=== PATIENT | male | born 1945 | race Caucasian/White ===

== ENCOUNTER 2019-07-18 19:13 | Emergency (ER) | payer MEDICARE, SELFPAY ==
--- NOTE | ~2019-07-18 | XR_ITS ---
EXAMINATION: XR chest 2V DATE: 07/18/2019 19:42 INDICATION: Shortness of breath and cough TECHNIQUE: PA and lateral views of the chest are obtained. COMPARISON: None available FINDINGS: The lungs are free of acute opacities. There is no pleural effusion or pneumothorax. The ca rdiomediastinal silhouette is normal. There is mild thoracic spondylosis. IMPRESSION: 1. No acute cardiopulmonary abnormality. Reviewed, dictated and finalized at location A. DREN'S MINISTRY DIRECTOR
[2019-07-18 19:17] VITALS: BP 186/95; PULSE 71; RESP 20; O2SAT 97
[2019-07-18 19:26] VITALS: BP 175/84; PULSE 68; RESP 20; TEMP 37.2; O2SAT 97
[2019-07-18 19:29] VITALS: O2SAT 97
--- NOTE | 2019-07-18 20:01 | ECG_ITS ---
Measurements Intervals [place] Rate: 66 P: 65 VA: 187 QRS: 16 QRSD: 94 T: 40 QT: 394 QTc: 413 Interpretive Statements SINUS RHYTHM CANNOT RULE OUT SEPTAL INFARCT, AGE INDETERMINATE ABNORMAL ECG Electronically Signed On 07-19-2019 7:05:03 MAIL AGENT by George Molina D.O.
[2019-07-18 20:02] LABS: Basophils Absolute Auto 0.1 K/mm3 (0.0-0.1); Basophils Percent Auto 0.9 % (0.2-1.2); Eosinophils Absolute Auto 0.5 K/mm3 (0-0.3); Eosinophils Percent Auto 9.8 % (0-4.4); Hematocrit 45.5 % (42.0-52.0); Hemoglobin 15.3 g/dL (14.0-18.0); Immature Granulocyte Absolute 0.02 K/mm3 (0.00-0.031); Immature Granulocyte Percent A 0.4 % (0-0.5); Lymphocytes Absolute Auto 1.15 K/mm3 (0.9-3.2); Lymphocytes Percent Auto 21.6 % (18.3-44.2); Mean Corpuscular HGB Conc 33.6 g/dl (32-36); Mean Corpuscular Hemoglobin 32.9 pg (26-34); Mean Corpuscular Volume 97.8 fl (80-100); Mean Platelet Volume 10.2 fl (7.4-10.4); Monocytes Absolute Auto 0.7 K/mm3 (0.1-0.6); Monocytes Percent Auto 13.7 % (2.6-8.5); Neutrophils Absolute Auto 2.9 K/mm3 (1.3-6.7); Neutrophils Percent Auto 53.6 % (45.5-73.1); Platelet Count Result 170 k/mm3 (150-375); Red Blood Count 4.65 M/mm3 (4.6-6.20); Red Cell Distribution Width 12.7 % (11.5-14.5); White Blood Count 5.3 K/mm3 (4.5-10.0)
--- NOTE | 2019-07-18 20:07 | ED.SOB ---
HPI - SOB/Dyspnea General Chief Complaint: Shortness of Breath/Dyspnea Stated Complaint: sob Time Seen by Provider: 07/18/19 20:07 Source: patient Mode of arrival: ambulatory Limitations: no limitations History of Present Illness HPI Narrative: A 74 y/o male presents to the ED with c/o intermittent SOB that is worse on exertion. Pt states that he woke up at 2:00 AM and felt SOB when he was walking to the bathroom. Pt notes that everyone has been coming to work sick and the yeimi behind me was coughing on Thursday. Pt went into work today and did not feel SOB while he was there. Pt thinks that his symptoms may be panic attack related. Pt states that he feels better now. Pt denies CP and notes that he had an echocardiogram done 4-5 months ago. Pt quit smoking about 5 years ago but used to smoke 2-3 PPD. Pt was prescribed Spiriva by his PCP, Dr. Mckinley, a few years ago but never took it. Pt last saw Dr. Mckinley a couple weeks ago. Pt lives alone and notes that his 4 years ago due to COPD. He denies BLE pain or edema, a FERRER, and a fever. Onset (ago): hour(s) Timing: intermittent Exacerbating factors: exertion Related Data Home Medications Medication Instructions Recorded Confirmed escitalopram oxalate 10 mg tablet 10 mg PO DAILY 05/23/19 05/23/19 levothyroxine 100 mcg tablet 100 mcg PO DAILY 05/23/19 05/23/19 tiotropium bromide 2.5 1 puff INHALATION DAILY PRN gm 05/23/19 05/23/19 mcg/actuation mist for inhalation Allergies Allergy/AdvReac Type Severity Reaction Status Date / Time No Known Allergies Allergy Verified 07/05/19 11:41 Review of Systems Review of Systems: All systems reviewed & are unremarkable except as noted in HPI and below Constitutional: Constitutional: Denies fever(s) Cardiovascular: Cardiovascular: Denies chest pain Respiratory: Respiratory: Reports dyspnea (intermittent ) Musculoskeletal: Comments: Denies: BLE pain or edema Neurologic: Denies headache(s) [facility], [facility] Past Medical History Medical History (Updated 07/19/19 @ 00:00 by Background Daemon) Alcoholism Anxiety Cataracts, bilateral Dupuytren's contracture right palm Elevated liver enzymes Elevated PSA Essential tremor History of rectal polyps Hyperglycemia Hypertension Hypothyroid Wears glasses Social History Social History Smoking status: Former smoker Smoking end date: 06/08/11 Alcohol intake: current Substance use: never Comments PCP: Dr. Mckinley Exam Narrative: Exam Narrative: GENERAL: Well-appearing, well-nourished, and in no acute distress. HEAD: Normocephalic, atraumatic EYES: PERRLA and EOMI, conjunctiva clear without discharge THROAT:Mucous membranes moist, Oropharynx normal without erythema, exudate, peritonsillar swelling or fluctuance NECK: Supple, without lymphadenopathy or mass HEART: Regular rate and rhythm. No murmur heard. Normal peripheral pulses. ABDOMEN: Soft, nontender, nondistended, normal active bowel sounds. No masses. No rebound or guarding, No organomegaly. EXTREMITIES: No edema, normal strength with full range of motion. SKIN: Warm, dry, normal color without rash NEURO: Alert and oriented x3. CN 2-12 grossly intact. No focal deficits. PSYCH: Normal mood and affect. Resp: Effort & Inspection: normal respiratory effort, able to speak in complete sentences, prolonged expiratory phase and symmetric chest movement Auscultation: wheezes Course Reevaluation(s) Reevaluation #1: Patient states he feels better after neb treatment. His sob may be combination of COPD and anxiety. He states he understands and he will follow up with PCP. He states he has nebulizer at home and he request inhaler and neb solution. Date: 07/18/19 Time: 22:06 Vital Signs Vital signs: Vital Signs Pulse Rate 71 07/18/19 19:17 Respiratory Rate 20 07/18/19 19:17 Blood Pressure 186/95 H 07/18/19 19:17 Pulse Oximetry 97 07/18
[2019-07-18 20:35] LABS: Blood Urea Nitrogen 10 mg/dL (9-20); Calcium 9.4 mg/dL (8.4-10.2); Carbon Dioxide 27 mmol/L (22-30); Chloride 100 mmol/L (98-107); Estimated CRCL calculation 82 ml/min; Estimated Glomerular Filt Rate > 60; Glucose 119 mg/dL (75-110); Sodium 137 mmol/L (137-145)
[2019-07-18 20:58] VITALS: PULSE 61; RESP 12
[2019-07-18] MEDS: IPRATROPIUM BR 0.02% INH SOLN 0.5 MG/2.5 ML VIAL INHALATION (21:00)
[2019-07-18] MEDS: ALBUTEROL SULFATE NEB 2.5 MG/0.5 ML INH 5 MG INHALATION (21:00)
[2019-07-18 21:11] VITALS: PULSE 61; RESP 12
[2019-07-18 21:55] LABS: Prothrombin Time 12.6 Seconds (11.1-14.7)
[2019-07-18 21:56] LABS: Partial Thromboplastin Time 27.3 SECONDS (22.3-36.8)
[2019-07-18 21:58] LABS: D Dimer 0.36 ug/mL (<0.48)
[2019-07-18 22:20] VITALS: BP 169/79; PULSE 71; RESP 20; O2SAT 97
== END 2019-07-18 22:22 | disposition home or self-care (01) ==
PROVIDERS: Emergency Medicine; Emergency Provider General Practice; PCP Internal Medicine
DX: J44.1 Chronic obstructive pulmonary disease with (acute) exacerbation (principal); F41.9 Anxiety disorder, unspecified; I10 Essential (primary) hypertension; E03.9 Hypothyroidism, unspecified; Z87.891 Personal history of nicotine dependence
CPT/HCPCS: 36415; 71046; 80048; 85025; 85380; 85610; 85730; 87804; 93005; 94640; 99283

== ENCOUNTER 2019-07-19 06:50 | Emergency (ER) | payer MEDICARE, SELFPAY ==
[2019-07-19] VITALS (9 sets, daily range): BP systolic 158–188; BP diastolic 80–99; PULSE 65–80; RESP 15–31; TEMP 37.4; O2SAT 91–100
--- NOTE | ~2019-07-19 | CT_ITS ---
EXAMINATION: CTA chest PE protocol DATE: 07/19/2019 07:47 INDICATION: Shortness of breath and cough TECHNIQUE: Computed tomography (CT) pulmonary angiogram of the chest was performed with 100 mL Omnipa que-350 intravenous contrast. Additional 3D reconstructions utilizing coronal maximum intensity proje ction (MIP) were performed. Automated exposure control and iterative reconstruction technique were em ployed. The dose-length product was 614.09 mGy-cm. COMPARISON: None FINDINGS: Excellent contrast opacification of the pulmonary arteries. There is mild streak artifact from dense contrast in the superior vena cava and right atrium. Mild respiratory motion artifact at the lung bas es which is not significantly limit evaluation. No pulmonary embolism. There is diffuse bronchial wal l thickening throughout the lungs consistent with bronchitis. There is mucous plugging of several of the subsegmental bronchi in the bilateral lower lobes. No pneumonia, pulmonary edema or pleural effus ion. Heart size is normal. Thoracic aorta is normal in caliber with no dissection. Calcified mediasti nal lymph nodes as well as a multiple splenic and hepatic calcifications consistent with old granulom atous disease. No pathologically enlarged thoracic lymphadenopathy. Diffuse hepatic steatosis. Small sliding-type hiatal hernia. Bones are unremarkable. IMPRESSION: 1. No pulmonary embolism. 2. Diffuse bronchial wall thickening consistent with bronchitis with mucous plugging of multiple basi lar subsegmental bronchi. 2. Small sliding-type hiatal hernia. 4. Diffuse hepatic steatosis. Reviewed, dictated and finalized at location A. IT BALANCE SPECIALIST IMPRESSION: 1. No pulmonary embolism. 2. Diffuse bronchial wall thickening consistent with bronchitis with mucous plu gging of multiple basilar subsegmental bronchi. 2. Small sliding-type hiatal hernia. 4. Diffuse hepatic steatosis.
--- NOTE | 2019-07-19 06:51 | ECG_ITS ---
Measurements Intervals [place] Rate: 72 P: 51 UT: 170 QRS: 22 QRSD: 102 T: 41 QT: 391 QTc: 429 Interpretive Statements SINUS RHYTHM CANNOT RULE OUT SEPTAL INFARCT, AGE INDETERMINATE BASELINE ARTIFACT- I, III, AVR, AVL, AVF ABNORMAL ECG Electronically Signed On 07-19-2019 8:59:40 THERMOSTATIC CONTROLS SUPERVISOR by George Molina D.O.
--- NOTE | 2019-07-19 06:56 | ED.SOB ---
HPI - SOB/Dyspnea General Chief Complaint: Shortness of Breath/Dyspnea Stated Complaint: SOB Time Seen by Provider: 07/19/19 06:51 Source: RN notes reviewed History of Present Illness HPI Narrative: Patient presents emergency department from home for shortness of breath. Patient states that he has been having some intermittent shortness of breath for the past several days. Patient states that he was seen in the emergency department last night with improvement of symptoms in the he awoke at approximately 2 AM again wheezing and feeling short of breath with progressively worsening symptoms. Patient denies any fevers or chills, chest pain nausea or vomiting. Patient did use albuterol inhaler at home with minimal relief. Related Data Home Medications Medication Instructions Recorded Confirmed escitalopram oxalate 10 mg tablet 10 mg PO DAILY 05/23/19 05/23/19 levothyroxine 100 mcg tablet 100 mcg PO DAILY 05/23/19 05/23/19 tiotropium bromide 2.5 1 puff INHALATION DAILY PRN gm 05/23/19 05/23/19 mcg/actuation mist for inhalation Allergies Allergy/AdvReac Type Severity Reaction Status Date / Time No Known Allergies Allergy Verified 07/05/19 11:41 Review of Systems Review of Systems: Narrative: Gen.: Denies fevers or chills Eyes: Denies eye pain or visual change ENT: Denies congestion Respiratory: See HPI CV: Denies chest pain or palpitations GI: Denies abdominal pain nausea, emesis or diarrhea Musculoskeletal: Denies back pain or muscle pain Neuro: Denies numbness, tingling, weakness or focal weakness Skin: Denies rash Except as documented, all other systems reviewed and negative [facility] Past Medical History Medical History Alcoholism Anxiety Cataracts, bilateral Dupuytren's contracture right palm Elevated liver enzymes Elevated PSA Essential tremor History of rectal polyps Hyperglycemia Hypertension Hypothyroid Wears glasses Social History Social History Smoking status: Former smoker Smoking end date: 06/08/11 Alcohol intake: current Substance use: never Gender identity (if verbalized by the patient): Male Exam Narrative: Exam Narrative: APPEARANCE: Moderate respiratory distress nontoxic, resting in bed EYES: EOMI HEENT: Normocephalic, atraumatic, OMM RESPIRATORY: Moderate respiratory distress, speaking in short phrases, wheezing throughout the bilateral lung garland, no rhonchi rales CARDIOVASCULAR: Regular rate and rhythm without murmurs rubs or gallops. ABDOMINAL: Soft, nontender, nondistended, no rebound or guarding MUSCULOSKELETAl: Moves all extremities. No clubbing, cyanosis or edema. NEURO: Awake and alert. Following commands, speech normal, no focal deficits SKIN:: Warm, dry. No rashes lesions or abrasions PSYCHIATRIC: Normal affect/mood, Course Course Emergency Course: Patient states he is feeling better following breathing treatments. Repeat lung exam clear to all station bilaterally Patient able to get up and ambulate in ED with no shortness of breath Reviewed old records in chart. Patient was prescribed albuterol inhaler yesterday Discussed with patient results of workup and diagnosis. Discussed need for follow-up with primary care, proper use of medication, and reasons to return to the emergency department. Patient understands and agrees to current treatment plan Vital Signs Vital signs: Vital Signs Temperature 99.4 F 07/19/19 06:57 Pulse Rate 80 07/19/19 06:57 Respiratory Rate 22 H 07/19/19 06:57 Blood Pressure 185/99 H 07/19/19 06:57 Pulse Oximetry 98 07/19/19 06:57 Temperature 99.4 F 07/19/19 07:07 Pulse Rate 68 07/19/19 09:13 Respiratory Rate 16 07/19/19 09:13 Blood Pressure 171/80 H 07/19/19 09:13 Pulse Oximetry 91 07/19/19 09:13 MDM - SOB/Dyspnea Lab Data Result diagrams: 07/19/19 07:07 07/19/19 07:06
[2019-07-19 07:15] LABS: Basophils Absolute Auto 0.1 K/mm3 (0.0-0.1); Basophils Percent Auto 0.9 % (0.2-1.2); Eosinophils Absolute Auto 0.4 K/mm3 (0-0.3); Eosinophils Percent Auto 6.2 % (0-4.4); Hematocrit 45.7 % (42.0-52.0); Hemoglobin 15.4 g/dL (14.0-18.0); Immature Granulocyte Absolute 0.02 K/mm3 (0.00-0.031); Immature Granulocyte Percent A 0.3 % (0-0.5); Lymphocytes Absolute Auto 0.75 K/mm3 (0.9-3.2); Mean Corpuscular HGB Conc 33.7 g/dl (32-36); Mean Corpuscular Volume 97.9 fl (80-100); Mean Platelet Volume 9.8 fl (7.4-10.4); Monocytes Percent Auto 17.3 % (2.6-8.5); Neutrophils Absolute Auto 3.6 K/mm3 (1.3-6.7); Neutrophils Percent Auto 62.3 % (45.5-73.1); Platelet Count Result 158 k/mm3 (150-375); Red Blood Count 4.67 M/mm3 (4.6-6.20); Red Cell Distribution Width 12.7 % (11.5-14.5); White Blood Count 5.8 K/mm3 (4.5-10.0)
[2019-07-19 07:17] LABS: Alveolar/Arterial O2 Gradient 40.1 mmHg; Base Excess ABG 0.6 mEq/l (+/-2.0); Fractional Inspired Oxygen 21 %; HCO3 ABG 24.4 mEq/l (22.0-26.0); Oxygen Content ABG 20.2 %vol (16.0-22.0); Oxygen Saturation ABG 93.8 % (95.0-100.0); Oxyhemoglobin 92.3 % THb (90.0-100.0); PCO2 ABG 36.6 mmHg (35.0-45.0); PO2 ABG 65.8 mmHg (80.0-100.0); PO2 FiO2 Ratio Arterial Blood 3.13 %; Site Drawn RIGHT BRACHIAL; Total Hemoglobin 15.6 g/dL (12.0-18.0); pH ABG 7.441 (7.350-7.450)
[2019-07-19 07:18] LABS: Device ROOM AIR
[2019-07-19] MEDS: IPRATROPIUM BR 0.02% INH SOLN 0.5 MG/2.5 ML VIAL INHALATION ×2 (07:20→08:38)
[2019-07-19] MEDS: ALBUTEROL SULFATE NEB 2.5 MG/0.5 ML INH 5 MG INHALATION ×2 (07:20→08:38)
--- NOTE | 2019-07-19 07:25 | PC.NURSE ---
Assumed pt care at this time.
[2019-07-19 07:27] LABS: Lactic Acid Reflex 0.8 mmol/L (0.7-2.1)
[2019-07-19 07:27] LABS: Blood Urea Nitrogen 10 mg/dL (9-20); Calcium 9.7 mg/dL (8.4-10.2); Carbon Dioxide 22 mmol/L (22-30); Chloride 103 mmol/L (98-107); Estimated CRCL calculation 94 ml/min; Estimated Glomerular Filt Rate > 60; Glucose 128 mg/dL (75-110); Potassium 4.1 mmol/L (3.4-5.0); Sodium 138 mmol/L (137-145)
[2019-07-19 07:31] LABS: Prothrombin Time 12.7 Seconds (11.1-14.7)
[2019-07-19 07:32] LABS: Partial Thromboplastin Time 26.9 SECONDS (22.3-36.8)
[2019-07-19] MEDS: methylPREDNISolone SOD SUCC 125 MG VIAL IV PUSH (07:33)
[2019-07-19 07:39] LABS: NT Pro B Type Natriuretic Pept 441 PG/ML (5-100); Troponin I < 0.012 ng/mL (0.000-0.034)
== END 2019-07-19 09:36 | disposition home or self-care (01) ==
PROVIDERS: Emergency Provider Emergency Medicine; PCP Internal Medicine
DX: F41.9 Anxiety disorder, unspecified (principal); E03.9 Hypothyroidism, unspecified; Z87.891 Personal history of nicotine dependence; J44.9 Chronic obstructive pulmonary disease, unspecified; R94.31 Abnormal electrocardiogram [ECG] [EKG]
CPT/HCPCS: 36415; 36600; 71275; 80048; 82805; 83605; 83880; 84484; 85025; 85610; 85730; 87040; 93005; 94640; 96374; 99284; J2930; Q9967

== ENCOUNTER 2019-07-19 23:24 | Observation (INO) | payer MEDICARE, SELFPAY ==
--- NOTE | ~2019-07-19 | XR_ITS ---
EXAMINATION: XR chest 1V portable DATE: 07/20/2019 00:35 INDICATION: COPD presenting with shortness of breath TECHNIQUE: frontal view of the chest was obtained. COMPARISON: Chest radiograph dated 07/18/[address] dated 07/19/2019 FINDINGS: Calcified nodule at the left lung base and calcified left hilar no other airspace opacities, pulmonar y edema, pleural effusion or pneumothorax. Lymph nodes consistent with old granulomatous disease. The cardiomediastinal silhouette is normal. IMPRESSION: 1. No acute cardiopulmonary disease. Reviewed, dictated and finalized at location A. AL MEDIA STRATEGIST
--- NOTE | 2019-07-19 23:33 | ED.SOB ---
HPI - SOB/Dyspnea General Chief Complaint: Shortness of Breath/Dyspnea Stated Complaint: sob Time Seen by Provider: 07/19/19 23:29 Source: patient and RN notes reviewed Mode of arrival: other Limitations: no limitations History of Present Illness HPI Narrative: Pt is a 74 y/o male who presents to the ED with c/o SOB with wheezing that began at an hour ago. Pt was here at [facility] Thursday (07/18/19) evening with intermittent dyspnea and a cough, but no chest pain. Pt was had an unremarkable evaluation. Pt's CT scan dx the pt with COPD and bronchitis. Pt was d/c home with no SOB and prescribed Prednisone. Pt returns to the ED tonight with returning sx. Pt states that he used his inhaler and has had 10 breathing tx today, but with no relief of his sx. Pt states that he took his medication today as prescribed. Pt also reports trouble smelling, but denies CP, fever, and sinus drainage. MD elicited complaint: shortness of breath Onset (ago): hour(s) (1) Timing: constant Severity: moderate Relieving factors: nothing Associated symptoms: other (trouble smelling) Treatment prior to arrival: other (inhaler and 10 breathing tx) Related Data Home oxygen amount: none Home Medications Medication Instructions Recorded Confirmed escitalopram oxalate 10 mg tablet 10 mg PO DAILY 05/23/19 07/20/19 levothyroxine 100 mcg tablet 100 mcg PO DAILY 05/23/19 07/20/19 tiotropium bromide 2.5 1 puff INHALATION DAILY PRN gm 05/23/19 05/23/19 mcg/actuation mist for inhalation Allergies Allergy/AdvReac Type Severity Reaction Status Date / Time No Known Allergies Allergy Verified 07/05/19 11:41 Review of Systems Review of Systems: All systems reviewed & are unremarkable except as noted in HPI and below Constitutional: Constitutional: Denies fever(s) ENT: Reports other (Reports: trouble smelling; Denies: sinus drainage) Cardiovascular: Cardiovascular: Denies chest pain Respiratory: Respiratory: Reports dyspnea and Reports wheezing PMFSH Past Medical History Medical History (Updated 07/20/19 @ 07:34 by Sana Davila MD) Alcoholism Anxiety Cataracts, bilateral Dupuytren's contracture right palm Elevated liver enzymes Elevated PSA Essential tremor History of rectal polyps Hyperglycemia Hypertension Hypothyroid Wears glasses Surgical History Surgical History (Updated 07/20/19 @ 00:07 by Latia Eisenberg) No history of previous surgery Family History Family History (Updated 07/20/19 @ 03:03 by Kriss Jaimes RN) Mother Alzheimer disease Father COPD (chronic obstructive pulmonary disease) Smoking Sibling Breast cancer Social History Social History Smoking status: Former smoker Smoking end date: 06/08/11 Alcohol intake: current Drinks per week: 30 Substance use: never Gender identity (if verbalized by the patient): Male Spiritual care concerns: No Exam Const: General: alert and acute distress Orientation/consciousness: patient oriented x3 Eyes: Conjunctivae: conjunctivae normal Pupils: Equal, round and reactive pupils present Neck: Neck: normal visual inspection and no lymphadenopathy Chest: Chest palpation & inspection: normal inspection of the chest Resp: Effort & Inspection: tachypneic Auscultation: wheezes expiratory wheezes and throughout Cardio: Rate: regular rate Rhythm: regular rhythm Heart sounds: no murmurs Other: no edema GI: Inspection: non-distended GI Palp: Yes Soft to palpation, No Tenderness to palpation present (GI) and No Guarding due to palpation present (GI) Skin: General skin exam: normal color Rashes: no rashes Neuro: General: patient oriented x3 and moves all extremities Extrem: General: normal to inspection and no pedal edema Psych: Mental Status: mental status grossly normal Course Course Emergency Course: Patient presented for 3rd time in 2 days for shortness. Today he was hypoxic
[2019-07-19 23:34] VITALS: BP 191/100; PULSE 81; RESP 29; TEMP 37; O2SAT 89
[2019-07-19 23:38] VITALS: O2SAT 90
[2019-07-19] MEDS: ALBUTEROL SULFATE NEB 2.5 MG/0.5 ML INH 10 MG INHALATION (23:50)
[2019-07-19] MEDS: IPRATROPIUM BR 0.02% INH SOLN 0.5 MG/2.5 ML VIAL 1 MG INHALATION (23:50)
[2019-07-19 23:51] VITALS: PULSE 75; RESP 24
[2019-07-20] VITALS (19 sets, daily range): BP systolic 142–164; BP diastolic 73–88; PULSE 58–96; RESP 16–22; TEMP 36.6–36.8; O2SAT 91–98; BMI 31.6
[2019-07-20] LABS: Alveolar/Arterial O2 Gradient 53.6 mmHg; Base Excess ABG 0.8 mEq/l (+/-2.0); Carboxyhemoglobin 0.9 % THb (0-2.0); Fractional Inspired Oxygen 21 %; HCO3 ABG 24.3 mEq/l (22.0-26.0); Methemoglobin ABG 0.2 %THb (0-1.5); Oxygen Content ABG 19.4 %vol (16.0-22.0); Oxygen Saturation ABG 89.5 % (95.0-100.0); Oxyhemoglobin 88.1 % THb (90.0-100.0); PCO2 ABG 35.6 mmHg (35.0-45.0); PO2 ABG 53.5 mmHg (80.0-100.0); PO2 FiO2 Ratio Arterial Blood 2.55 %; Reduced Hemoglobin 10.8 %THb (0-5.0); Total Hemoglobin 15.7 g/dL (12.0-18.0); pH ABG 7.452 (7.350-7.450)
[2019-07-20 00:01] LABS: Device ROOM AIR; Modified Allen's Test Pass; Site Drawn LEFT RADIAL
[2019-07-20] MEDS: methylPREDNISolone SOD SUCC 125 MG VIAL IV PUSH (00:57)
--- NOTE | 2019-07-20 01:15 | PC.NURSE ---
PT PLACED ON 2L O2 AT THIS TIME.
[2019-07-20] MEDS: DOXYCYCLINE HYCLATE 100 MG TABLET PO ×3 (02:04→22:05)
--- NOTE | 2019-07-20 02:42 | ADMGEN ---
This patient, Fanny Hopson, was admitted to 3 Med Surg Room 324-02. Patient/family oriented to hospital policies and general routines including ID bracelet, bed and alarms, visiting hours, pain management, procedures, bathroom and other care routines, personal items, smoking policy, room service/diet, and visiting hours. Valuables list has been completed. Information on how to activate the Rapid Response Team has been discussed. Patient/Family are encouraged to report perceived risks to care and to ask questions if they do not understand what they are told or what they should do.
[2019-07-20] MEDS: IPRATROPIUM BR 0.02% INH SOLN 0.5 MG/2.5 ML VIAL INHALATION ×4 (03:03→21:08)
[2019-07-20] MEDS: ALBUTEROL SULFATE NEB 2.5 MG/0.5 ML INH 5 MG INHALATION ×4 (03:03→21:08)
[2019-07-20 06:28] LABS: Basophils Percent Auto 0.3 % (0.2-1.2); Hematocrit 42.7 % (42.0-52.0); Hemoglobin 14.3 g/dL (14.0-18.0); Immature Granulocyte Absolute 0.05 K/mm3 (0.00-0.031); Immature Granulocyte Percent A 0.8 % (0-0.5); Lymphocytes Absolute Auto 0.58 K/mm3 (0.9-3.2); Lymphocytes Percent Auto 9.4 % (18.3-44.2); Mean Corpuscular HGB Conc 33.5 g/dl (32-36); Mean Corpuscular Volume 98.6 fl (80-100); Mean Platelet Volume 10.1 fl (7.4-10.4); Monocytes Absolute Auto 0.3 K/mm3 (0.1-0.6); Monocytes Percent Auto 5.2 % (2.6-8.5); Neutrophils Absolute Auto 5.2 K/mm3 (1.3-6.7); Neutrophils Percent Auto 84.3 % (45.5-73.1); Platelet Count Result 158 k/mm3 (150-375); Red Blood Count 4.33 M/mm3 (4.6-6.20); Red Cell Distribution Width 12.6 % (11.5-14.5); White Blood Count 6.2 K/mm3 (4.5-10.0)
[2019-07-20 06:46] LABS: Alanine Aminotransferase 27 U/L (4-50); Albumin Level 4.2 g/dL (3.5-5.1); Alkaline Phosphatase 51 U/L (38-126); Aspartate Amino Transferase 23 U/L (17-59); Bilirubin,Total 0.7 mg/dL (0.2-1.3); Blood Urea Nitrogen 11 mg/dL (9-20); Calcium 9.7 mg/dL (8.4-10.2); Carbon Dioxide 28 mmol/L (22-30); Chloride 99 mmol/L (98-107); Estimated CRCL calculation 82 ml/min; Estimated Glomerular Filt Rate > 60; Glucose 192 mg/dL (75-110); Potassium 3.6 mmol/L (3.4-5.0); Sodium 137 mmol/L (137-145)
[2019-07-20] MEDS: AMLODIPINE BESYLATE 5 MG TABLET PO (09:31)
[2019-07-20] MEDS: ESCITALOPRAM OXALATE 10 MG TABLET PO (09:32)
[2019-07-20] MEDS: PROPRANOLOL HCL 40 MG TABLET 80 MG PO ×2 (09:32→22:05)
[2019-07-20] MEDS: methylPREDNISolone SOD SUCC 125 MG VIAL 60 MG IV PUSH ×2 (09:33→22:07)
[2019-07-20] MEDS: LEVOTHYROXINE SODIUM 100 MCG TABLET PO (09:33)
--- NOTE | 2019-07-20 09:51 | PM.IMHP ---
H&P: HPI History of Present Illness Chief complaint: acute bronchitis,hypoxia Narrative: Fanny Hopson is a 74 year old male with history of anxiety, HTN, and significant smoking history who presented to the ED on 07/19 with complaints of worsening SOB and wheezing. Patient states he originally began having SOB on evening of 07/17 and progressively worsened to a point he presented to the ED on 07/18 for evaluation. He was subsequently sent home with steroids and then again returned on morning of 07/19. He was discharged from here with prednisone and azithromycin and stated he took his first dose of azithromycin and took 3-4 breathing treatments with little relief so he decided to again present to the ER on evening of 07/19. Today patient states he is feeling much better. His SOB is improving, although his now on 2L O2. He has a dry, occasional cough currently. Patient states he was in close contact with some of his coworkers who have been recently ill with seemingly viral URI. He did not try any other OTC therapy other than what was prescribed to him from ED. Nothing necessarily made his breathing better or worse, including position, exertion, etc. He has never been diagnosed with COPD but does admit to roughly 60 pack-year smoking history, quitting roughly 5-6 years ago. He denies any chest pain/palpitations. He does admit to drinking 4-5 beers/day, stating he quit 2 days ago when his symptoms started. He denies any recent illness himself. He has no other complaints at this time, other than he would like to leave as quickly as possible to take care of his elderly/blind dog, left at home. He denies f/c/ns, headaches, dizziness, lightheadedness, changes in v/h, cp/palpitations, n/v/d/c, abd pain, dysphagia, melena, brbpr, dysuria, hematuria, cloudy urine, calf pain/swelling, s/sx of stroke Review of Systems Review of Systems: All systems reviewed & are unremarkable except as noted in HPI and below PMFSH Past Medical History Medical History (Updated 07/20/19 @ 10:03 by Jayson Kaiser PA-C) Alcoholism Anxiety Cataracts, bilateral Dupuytren's contracture B/L. Right s/p release Elevated liver enzymes Elevated PSA Essential tremor History of rectal polyps Hyperglycemia Hypertension Hypothyroid Wears glasses Surgical History Surgical History No history of previous surgery Family History Family History Mother Alzheimer disease Father COPD (chronic obstructive pulmonary disease) Smoking Sibling Breast cancer Social History Social History (Updated 07/20/19 @ 10:06 by Jayson Kaiser PA-C) Social History: Patient lives at home alone with his dog who is elderly/blind. He does not wish to designate a surrogate MDM as he has no living family in the area. He wishes to be a Full code. His PCP is Dr. Mckinley Smoking status: Former smoker Smoking end date: 06/08/13 Additional smoking assessment comments: Smoked 2ppd for roughly 30 years Alcohol intake: current Drinks per week: 30 Alcohol use details: Last drink 2 days prior to this admission Substance use: never Gender identity (if verbalized by the patient): Male Spiritual care concerns: No Meds Home Medications and Allergies Home Medications Medication Instructions Recorded Confirmed Type valsartan 320 1 tablet PO DAILY #90 tablet 04/18/19 Rx mg-hydrochlorothiazide 12.5 mg tablet amlodipine 5 mg tablet 5 mg PO DAILY #90 tablet 05/23/19 07/20/19 Rx escitalopram oxalate 10 mg tablet 10 mg PO DAILY 05/23/19 07/20/19 History levothyroxine 100 mcg tablet 100 mcg PO DAILY 05/23/19 07/20/19 History tiotropium bromide 2.5 1 puff INHALATION DAILY PRN gm 05/23/19 05/23/19 History mcg/actuation mist for inhalation propranolol 80 mg tablet 80 mg PO BID #60 tablet 06/07/19 07/20/19 Rx albuterol sulfate 2 puff INHALATION QID PRN #6.7 gm 07/09
[2019-07-20] MEDS: DORNASE ALFA INH SOLN 1 MG/ML 2.5 ML AMP 2.5 MG INHALATION ×2 (09:57→21:08)
--- NOTE | 2019-07-20 23:00 | PC.NURSE ---
supervisor shaving and splitting Laura notified by ANTONIA Levy that the patient is refusing to put up his rescue inhaler and wants to leave if he will not be allowed to keep it at the bedside. ADAM Adan also aware. Patient is very upset.
--- NOTE | 2019-07-20 23:15 | PC.NURSE ---
Patient is in the rowe and willing to give up his rescue inhaler and states that he understands the reason behind not being able to keep/use home medications at the bedside.
[2019-07-21] VITALS (8 sets, daily range): BP systolic 146–159; BP diastolic 62–82; PULSE 54–67; RESP 16–18; TEMP 36–36.7; O2SAT 92–94
[2019-07-21] MEDS: IPRATROPIUM BR 0.02% INH SOLN 0.5 MG/2.5 ML VIAL INHALATION ×2 (03:31→09:17)
[2019-07-21] MEDS: ALBUTEROL SULFATE NEB 2.5 MG/0.5 ML INH 5 MG INHALATION ×2 (03:32→09:17)
[2019-07-21] MEDS: LEVOTHYROXINE SODIUM 100 MCG TABLET PO (05:37)
[2019-07-21 07:07] LABS: Blood Urea Nitrogen 16 mg/dL (9-20); Carbon Dioxide 28 mmol/L (22-30); Chloride 100 mmol/L (98-107); Estimated CRCL calculation 82 ml/min; Estimated Glomerular Filt Rate > 60; Glucose 167 mg/dL (75-110); Magnesium 2.2 mg/dL (1.6-2.3); Sodium 137 mmol/L (137-145)
[2019-07-21] MEDS: PROPRANOLOL HCL 40 MG TABLET 80 MG PO (09:09)
[2019-07-21] MEDS: methylPREDNISolone SOD SUCC 125 MG VIAL 60 MG IV PUSH (09:11)
[2019-07-21] MEDS: AMLODIPINE BESYLATE 5 MG TABLET PO (09:12)
[2019-07-21] MEDS: DOXYCYCLINE HYCLATE 100 MG TABLET PO (09:12)
[2019-07-21] MEDS: ESCITALOPRAM OXALATE 10 MG TABLET PO (09:13)
--- NOTE | 2019-07-21 11:46 | PM.DS ---
DS: Diagnosis Admitting Diagnosis Admitting Diagnosis: Acute bronchitis, unspecified Discharge Diagnosis (1) Acute bronchitis: Qualifiers: Bronchitis organism: unspecified organism Qualified Code(s): J20.9 - Acute bronchitis, unspecified Code(s): J20.9 - Acute bronchitis, unspecified Status: Acute Assessment and Plan: With mucus plugging suggested on CTA. Patient is symptomatically feeling better again today; he is satting in mid-90s on RA now today per nursing. He feels comfortable going home. Continue PO Doxycycline started from ER. Finish 5 day course at discharge Duonebs, PEP therapy, Mucinex, and pulmazyme during stay Will discharge on steroid taper Instructed to follow up with PCP and return to ED should symptoms take a turn for the worse (2) Hypoxia: Code(s): R09.02 - Hypoxemia Status: Acute Assessment and Plan: Likely secondary to above and mucus plugging. Possible has underlying COPD given extensive smoking history. This appears to have resolved/improved as he is satting in mid 90s on room air Will need follow up with PCP as outpatient for possible COPD work up (3) Anxiety: Code(s): F41.9 - Anxiety disorder, unspecified Status: Acute Assessment and Plan: No acute issues. Continue home medications at this time (4) Alcoholism: Code(s): F10.20 - Alcohol dependence, uncomplicated Status: Acute Assessment and Plan: 4-5 beers/day for several years and last drink was 2 days ago. CIWA 0 today. Drinking cessation encouraged (5) Hypothyroid: Code(s): E03.9 - Hypothyroidism, unspecified Status: Acute Assessment and Plan: Continue home dose levothyroxine (6) Hypertension: Code(s): I10 - Essential (primary) hypertension Status: Acute Assessment and Plan: BP 140s systolic today Continue home medications Follow up with PCP (7) Essential tremor: Code(s): G25.0 - Essential tremor Status: Acute Assessment and Plan: No acute issues Continue propranolol DS: Summary Hospital Course Reason for hospitalization: Acute bronchitis; acute respiratory failure with hypoxia Hospital Course: Patient is a 74 year old male with history of anxiety, HTN, and significant smoking history who presented to the ED on 07/19 with complaints of worsening SOB and wheezing. Patient had been to the ER 3 times within 24 hours prior to being admitted. Patient began having SOB on evening of 07/17 which progressively worsened to a point he presented to the ED for evaluation; from there he was given steroids and sent home. He returned on morning of 07/19 and was again discharged with his steroids and azithromycin; he then returned on evening of 07/19 with similar symptoms that were no resolving. At this time he was found to be hypoxic and requiring 2L O2 NC. Patient was found to have possible mucus plugging on CTA imaging. Please see H&P for further details. Presenting VS: BP 191/100, HR 81, RR 29, temp 98.6, sat 89% RA Presenting Pertinent labs: D-dimer negative, troponin negative, BNP 441, ABG: pH 7.452, pO2 53.5, O2 sat 89.5% on RA; otherwise unremarkable. CBC, BMP, coags otherwise unremarkable. Micro: BC negative x2 after 5 days Imagin/10 CXR IMPRESSION: 1. No acute cardiopulmonary abnormality 07/19 Chest CTA IMPRESSION: 1. No pulmonary embolism. 2. Diffuse bronchial wall thickening consistent with bronchitis with mucous plugging of multiple basilar subsegmental bronchi. 2. Small sliding-type hiatal hernia. 4. Diffuse hepatic steatosis. 07/19 CXR IMPRESSION: 1. No acute cardiopulmonary disease. ECG: Interpretive Statements SINUS RHYTHM
== END 2019-07-21 14:00 | disposition home or self-care (01) ==
LOC: ANHED 23:40 → ANH3MEDSUR 07-20 01:55
PROVIDERS: Physician Assistant; Admitting Provider Family Medicine; Emergency Provider General Practice; PCP Internal Medicine; Visit Provider Family Medicine
DX: J20.9 Acute bronchitis, unspecified (principal); R09.02 Hypoxemia; F41.9 Anxiety disorder, unspecified; F10.20 Alcohol dependence, uncomplicated; E03.9 Hypothyroidism, unspecified; I10 Essential (primary) hypertension; G25.0 Essential tremor; Z23 Encounter for immunization; Z87.891 Personal history of nicotine dependence
CPT/HCPCS: 36415; 36600; 71045; 71275; 80048; 80053; 82375; 82805; 83050; 83605; 83735; 83880; 84484; 85025; 85610; 85730; 87040; 90471; 90686; 93005; 94640; 96374; 96376; 99284; 99285; A9270; G0008; G0378; J2930; Q9967

== ENCOUNTER 2020-02-23 04:43 | Observation (INO) | payer MEDICARE, SELFPAY ==
[2020-02-23] VITALS (18 sets, daily range): BP systolic 129–178; BP diastolic 69–98; PULSE 60–82; RESP 12–24; TEMP 35.5–36.9; O2SAT 92–100; BMI 32.7
--- NOTE | ~2020-02-23 | XR_ITS ---
EXAMINATION: XR chest 1V portable EXAM DATE: 02/23/2020 05:43 INDICATION: Shortness of breath, respiratory failure. TECHNIQUE: Portable AP frontal chest x-ray was obtained. Comparison is made to prior examination from 07/20/2019. FINDINGS: There is left lower lobe granuloma. The lungs are otherwise clear. There are no pleural ef fusions. The cardiomediastinal silhouette is within normal limits. There is no pneumothorax suspect ed. The bones and soft tissues are unremarkable. IMPRESSION: No acute cardiopulmonary findings. Reviewed, dictated and finalized at location A.
--- NOTE | 2020-02-23 04:51 | ECG_ITS ---
Measurements Intervals [place] Rate: 84 P: 60 MD: 174 QRS: 15 QRSD: 105 T: 38 QT: 374 QTc: 444 Interpretive Statements SINUS RHYTHM CANNOT RULE OUT SEPTAL INFARCT, AGE INDETERMINATE BASELINE ARTIFACT- I, II, III, AVR, AVL, AVF, V3-V6 ABNORMAL ECG Electronically Signed On 02-23-2020 7:38:05 CDT by George Molina D.O.
--- NOTE | 2020-02-23 04:52 | ED.SOB ---
HPI - SOB/Dyspnea General Chief Complaint: Shortness of Breath/Dyspnea Stated Complaint: SOB Time Seen by Provider: 02/23/20 04:50 Source: patient Mode of arrival: ambulatory Limitations: clinical condition History of Present Illness HPI Narrative: Patient is a 74-year-old male with a history of COPD, bronchitis, hypertension who presents for evaluation of shortness of breath. Patient states he has had worsening dyspnea over the past 3 days, it became so bad this evening that he decided to drive himself to the emergency department. He reports productive cough and wheezing. He reports extreme difficulty breathing. Patient states this last happened in July of this year and he was admitted at that time. Patient states he has never required BiPAP or intubation. Patient has a [id number] smoking history was smoking cessation 6 years ago. Patient denies fever, chills, recent sick contacts. At the time of assessment, patient is in severe respiratory distress, hypoxic with increased work of breathing, additional history limited due to clinical condition. Related Data Allergies Allergy/AdvReac Type Severity Reaction Status Date / Time No Known Allergies Allergy Verified 02/23/20 05:05 Review of Systems Review of Systems: Narrative: CONSTITUTIONAL: Denies fever CARDIOVASCULAR: Denies chest pain RESPIRATORY: Reports cough and shortness of breath GASTROINTESTINAL: Denies abdominal pain SKIN: Denies rash MUSCULOSKELETAL: Denies back pain NEUROLOGIC: Denies headache PMFSH Past Medical History Medical History (Updated 02/23/20 @ 06:38 by Monique Arevalo MD) Alcoholism Anxiety Cataracts, bilateral COPD (chronic obstructive pulmonary disease) Dupuytren's contracture B/L. Right s/p release Elevated liver enzymes Elevated PSA Essential tremor History of rectal polyps Hyperglycemia Hypertension Hypothyroid Wears glasses Surgical History Surgical History No history of previous surgery Social History Social History Social History: Patient lives at home alone with his dog who is elderly/blind. He does not wish to designate a surrogate MDM as he has no living family in the area. He wishes to be a Full code. His PCP is Dr. Mckinley Smoking status: Former smoker Smoking end date: 06/08/13 Additional smoking assessment comments: Smoked 2ppd for roughly 30 years Alcohol intake: current Drinks per week: 30 Substance use: never Gender identity (if verbalized by the patient): Male Spiritual care concerns: No Exam Narrative: Exam Narrative: GENERAL: Awake, alert,diaphoretic, ill appearing HEAD: Normocephalic, atraumatic. EYES: PERRLA and EOMI. ENT: Nares clear, no rhinorrhea or epistaxis. Mucous membranes moist. NECK: Supple. CHEST: Severe respiratory distress, labored breathing with use of accessory muscles, tachypneic, hypoxemic, audible wheezing HEART:Normal rate, sinus rhythm ABDOMEN:Non distended, non tender EXTREMITIES: Normal range of motion. No edema. SKIN: Warm, dry, no rash. NEURO:No focal deficits. Alert and oriented x3 Course Vital Signs Vital signs: Vital Signs Temperature 36.3 C L 02/23/20 05:00 Pulse Rate 70 02/23/20 05:00 Respiratory Rate 24 H 02/23/20 05:00 Blood Pressure 178/98 H 02/23/20 05:00 Pulse Oximetry 92 02/23/20 05:00 Temperature 36.3 C L 02/23/20 05:00 Pulse Rate 66 02/23/20 06:19 Respiratory Rate 16 02/23/20 06:19 Blood Pressure 146/69 H 02/23/20 06:05 Pulse Oximetry 100 02/23/20 06:05 MDM - SOB/Dyspnea MDM Narrative Medical decision making narrative: Patient presented in full on respiratory failure, history of COPD and bronchitis. Last admission for this was in October. Patient did very well with BiPAP, magnesium, steroids, DuoNeb treatment. At the time of reassessment, his dyspnea had completely resolved and he was able
[2020-02-23] MEDS: MAGNESIUM SULF 2 GM/WATER 50ML 2 GM/50 ML BAG IVPB (05:03)
[2020-02-23] MEDS: ALBUTEROL SULFATE NEB 2.5 MG/0.5 ML INH 20 MG INHALATION (05:14)
[2020-02-23] MEDS: IPRATROPIUM BR 0.02% INH SOLN 0.5 MG/2.5 ML VIAL 2 MG INHALATION (05:14)
[2020-02-23 05:18] LABS: Alveolar/Arterial O2 Gradient 24.7 mmHg; Fractional Inspired Oxygen 21 %; Modified Allen's Test Pass; Oxygen Content ABG 20.6 %vol (16.0-22.0); Oxyhemoglobin 93.5 % THb (90.0-100.0); PCO2 ABG 40.6 mmHg (35.0-45.0); PO2 ABG 76.4 mmHg (80.0-100.0); PO2 FiO2 Ratio Arterial Blood 3.64 %; Site Drawn RIGHT RADIAL; Total Hemoglobin 15.7 g/dL (12.0-18.0); pH ABG 7.372 (7.350-7.450)
[2020-02-23 05:19] LABS: Device NON-INVASIVE VENT; Non-Invasive Expiratory Pressure 5 CMH2O; Non-Invasive Inspiratory Pressure 15 CMH2O; Non-Invasive Vent Rate 16 /MIN
[2020-02-23] MEDS: SODIUM CHLORIDE 0.9% IV 500 ML 999 ML IV CONT (05:23)
[2020-02-23] MEDS: methylPREDNISolone SOD SUCC 125 MG VIAL IV PUSH (05:24)
[2020-02-23 05:31] LABS: Basophils Absolute Auto 0.1 K/mm3 (0.0-0.1); Basophils Percent Auto 0.9 % (0.2-1.2); Eosinophils Percent Auto 10.9 % (0-4.4); Hematocrit 48.4 % (42.0-52.0); Immature Granulocyte Absolute 0.03 K/mm3 (0.00-0.031); Immature Granulocyte Percent A 0.3 % (0-0.5); Lymphocytes Absolute Auto 1.83 K/mm3 (0.9-3.2); Lymphocytes Percent Auto 20.8 % (18.3-44.2); Mean Corpuscular HGB Conc 35.1 g/dl (32-36); Mean Corpuscular Hemoglobin 33.7 pg (26-34); Monocytes Absolute Auto 1.1 K/mm3 (0.1-0.6); Monocytes Percent Auto 12.4 % (2.6-8.5); Neutrophils Absolute Auto 4.8 K/mm3 (1.3-6.7); Neutrophils Percent Auto 54.7 % (45.5-73.1); Platelet Count Result 223 k/mm3 (150-375); Red Blood Count 5.04 M/mm3 (4.6-6.20); Red Cell Distribution Width 12.4 % (11.5-14.5); White Blood Count 8.8 K/mm3 (4.5-10.0)
[2020-02-23 05:44] LABS: Prothrombin Time 12.8 Seconds (11.1-14.7)
[2020-02-23 05:45] LABS: Partial Thromboplastin Time 28.4 SECONDS (22.3-36.8)
[2020-02-23 05:46] LABS: Lactic Acid Reflex 1.1 mmol/L (0.7-2.1)
[2020-02-23 05:47] LABS: Anion Gap 8 mmol/L (8-16); Blood Urea Nitrogen 8 mg/dL (9-20); Calcium 10.2 mg/dL (8.4-10.2); Carbon Dioxide 26 mmol/L (22-30); Chloride 104 mmol/L (98-107); Estimated Glomerular Filt Rate > 60; Glucose 118 mg/dL (75-110); Potassium 4.5 mmol/L (3.4-5.0); Sodium 138 mmol/L (137-145)
[2020-02-23 05:59] LABS: NT Pro B Type Natriuretic Pept 341 PG/ML (5-100); Troponin I < 0.012 ng/mL (0.000-0.034)
--- NOTE | 2020-02-23 09:55 | PC.NURSE ---
This patient, Fanny Hopson, was admitted to -. Patient/family oriented to hospital policies and general routines including ID bracelet, bed and alarms, visiting hours, pain management, procedures, bathroom and other care routines, personal items, smoking policy, room service/diet, and visiting hours. Valuables list has been completed. Information on how to activate the Rapid Response Team has been discussed. Patient/Family are encouraged to report perceived risks to care and to ask questions if they do not understand what they are told or what they should do.
[2020-02-23] MEDS: methylPREDNISolone SOD SUCC 125 MG VIAL 60 MG IV PUSH (12:00)
[2020-02-23] MEDS: IPRATROPIUM BR 0.02% INH SOLN 0.5 MG/2.5 ML VIAL INHALATION ×2 (13:36→21:44)
[2020-02-23] MEDS: ALBUTEROL SULFATE NEB 2.5 MG/0.5 ML INH 5 MG INHALATION ×2 (13:37→21:44)
--- NOTE | 2020-02-23 15:30 | PM.IMHP ---
H&P: HPI History of Present Illness Date/Time: 02/23/20 15:30 Chief complaint: COPD exacerbation/respiratory failure Narrative: Fanny Hopson is a 74 year old male admitted with sob, pt has history of COPD. Pt was admitted in jul with similar complaints. Pt states he has been off his inhalers not been taking any. Pt is due to see lung specialist soon. Pt has been having a bad cold since thursday which has got worse. Was given zpac from his PCP but it did not help him felt like he was getting worse. Pt drove himself to ED. Denies any covid contacts. Pt has a 60 year smoking pack history gave up 5 years ago. 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 Review of Systems Review of Systems: All systems reviewed & are unremarkable except as noted in HPI and below Cardiovascular: Cardiovascular: Denies chest pain and Denies chest pain at rest Respiratory: Respiratory: Reports chest congestion, Reports cough (cold symptoms ) and Reports dyspnea Gastrointestinal: Gastrointestinal: Denies no additional gastrointestinal complaints Genitourinary: Genitourinary: Denies no additional male genitourinary complaints Neurologic: Denies system reviewed and no additional complaints, except as documented Psychiatric: Psychiatric: Denies no additional psychiatric complaints PMFSH Past Medical History Medical History Alcoholism Anxiety Cataracts, bilateral COPD (chronic obstructive pulmonary disease) Dupuytren's contracture B/L. Right s/p release Elevated liver enzymes Elevated PSA Essential tremor History of rectal polyps Hyperglycemia Hypertension Hypothyroid Wears glasses Surgical History Surgical History No history of previous surgery Family History Family History Mother Alzheimer disease Congestive heart failure Father COPD (chronic obstructive pulmonary disease) Smoking Sibling Breast cancer Social History Social History Social History: Patient lives at home alone with his dog who is elderly/blind. He does not wish to designate a surrogate MDM as he has no living family in the area. He wishes to be a Full code. His PCP is Dr. Yablonsky Smoking packs per day: 3 Smoking cigarettes per day: 60.0 Years smoked: 35 Smoking pack-years: 105.00 Smoking status: Former smoker Tobacco type: cigarettes Second hand tobacco smoke exposure: Yes Smoking end date: 06/08/13 Additional smoking assessment comments: Smoked 2ppd for roughly 30 years Alcohol intake: current Drinks per week: 21 Substance use: never Gender identity (if verbalized by the patient): Male Spiritual care concerns: No Meds Home Medications and Allergies Home Medications Medication Instructions Recorded Confirmed Type albuterol sulfate 2 puff INHALATION QID PRN #6.7 gm 07/18/19 02/23/20 Rx albuterol sulfate 2.5 mg INHALATION Q4-6H PRN #75 ml 07/27/19 02/23/20 Rx escitalopram oxalate 10 mg tablet 10 mg PO DAILY #90 tablet 09/06/19 02/23/20 Rx levothyroxine 100 mcg tablet 100 mcg PO DAILY #90 tablet 09/06/19 02/23/20 Rx valsartan 320 1 tablet PO DAILY #90 tablet 09/13/19 02/23/20 Rx mg-hydrochlorothiazide 12.5 mg tablet amlodipine 5 mg tablet 5 mg PO DAILY #90 tablet 11/22/19 02/23/20 Rx propranolol 80 mg tablet 80 mg PO BID #180 tablet 12/13/19 02/23/20 Rx azithromycin 250 mg tablet See Rx Instructions PO .COMPLEX #6 02/22/20 02/23/20 Rx tablet Allergies Allergy/AdvReac Type Severity Reaction Status Date / Time No Known Allergies Allergy Verified 02/23/20 05:05 Vital Signs Vital Signs - 24 hr 02/23/20 05:00 02/23/20 05:10 02/23/20 05:19 Temperature 36.3 C L Pulse Rate 70 74 77 Respiratory Rate 24 H 24 H 20 Blood Pressure 178/98 H Pulse Oximetry 92 100 1
--- NOTE | 2020-02-23 15:57 | PM.IMHP ---
H&P: HPI History of Present Illness Date/Time: 02/23/20 15:57 Chief complaint: COPD exacerbation/respiratory failure Narrative: Chief complaint: COPD exacerbation/respiratory failure Narrative: Fanny Hopson is a 74 year old male admitted with sob, pt has history of COPD. Pt was admitted in jul with similar complaints. Pt states he has been off his inhalers not been taking any. Pt is due to see lung specialist soon. Pt has been having a bad cold since thursday which has got worse. Was given zpac from his PCP but it did not help him felt like he was getting worse. Pt drove himself to ED. Denies any covid contacts. Pt has a 60 year smoking pack history gave up 5 years ago. 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 Review of Systems Review of Systems: All systems reviewed & are unremarkable except as noted in HPI and below PMFSH Past Medical History Medical History Alcoholism Anxiety Cataracts, bilateral COPD (chronic obstructive pulmonary disease) Dupuytren's contracture B/L. Right s/p release Elevated liver enzymes Elevated PSA Essential tremor History of rectal polyps Hyperglycemia Hypertension Hypothyroid Wears glasses Surgical History Surgical History No history of previous surgery Family History Family History Mother Alzheimer disease Congestive heart failure Father COPD (chronic obstructive pulmonary disease) Smoking Sibling Breast cancer Social History Social History Social History: Patient lives at home alone with his dog who is elderly/blind. He does not wish to designate a surrogate MDM as he has no living family in the area. He wishes to be a Full code. His PCP is Dr. Mckinley Smoking packs per day: 3 Smoking cigarettes per day: 60.0 Years smoked: 35 Smoking pack-years: 105.00 Smoking status: Former smoker Tobacco type: cigarettes Second hand tobacco smoke exposure: Yes Smoking end date: 06/08/13 Additional smoking assessment comments: Smoked 2ppd for roughly 30 years Alcohol intake: current Drinks per week: 21 Substance use: never Gender identity (if verbalized by the patient): Male Spiritual care concerns: No Meds Home Medications and Allergies Home Medications Medication Instructions Recorded Confirmed Type albuterol sulfate 2 puff INHALATION QID PRN #6.7 gm 07/18/19 02/23/20 Rx albuterol sulfate 2.5 mg INHALATION Q4-6H PRN #75 ml 07/27/19 02/23/20 Rx escitalopram oxalate 10 mg tablet 10 mg PO DAILY #90 tablet 09/06/19 02/23/20 Rx levothyroxine 100 mcg tablet 100 mcg PO DAILY #90 tablet 09/06/19 02/23/20 Rx valsartan 320 1 tablet PO DAILY #90 tablet 09/13/19 02/23/20 Rx mg-hydrochlorothiazide 12.5 mg tablet amlodipine 5 mg tablet 5 mg PO DAILY #90 tablet 11/22/19 02/23/20 Rx propranolol 80 mg tablet 80 mg PO BID #180 tablet 12/13/19 02/23/20 Rx azithromycin 250 mg tablet See Rx Instructions PO .COMPLEX #6 02/22/20 02/23/20 Rx tablet albuterol sulfate 2.5 mg INHALATION Q4-6H PRN #60 02/24/20 Rx vial albuterol sulfate [Proventil HFA] 2 puff INHALATION QID PRN #1 inh 02/24/20 Rx ipratropium bromide 0.5 mg INHALATION Q6HRT #60 vial 02/24/20 Rx prednisone 10 mg PO DAILY #63 tablet 02/24/20 Rx Allergies Allergy/AdvReac Type Severity Reaction Status Date / Time No Known Allergies Allergy Verified 02/23/20 05:05 Vital Signs Vital Signs - 24 hr 02/23/20 05:00 02/23/20 05:10 02/23/20 05:19 Temperature 36.3 C L Pulse Rate 70 74 77 Respiratory Rate 24 H 24 H 20 Blood Pressure 178/98 H Pulse Oximetry 92 100 100 02/23/20 05:30 02/23/20 06:05 02/23/20 06:19 Temperature Pulse Rate 75 60 66 Respiratory Rate 16 14 16 Blood Pressure 129/97 H 146/69 H Pulse Oximetry 99 100
[2020-02-23] MEDS: methylPREDNISolone SOD SUCC 40 MG VIAL IV PUSH ×2 (17:55→23:37)
--- NOTE | 2020-02-23 21:24 | PC.NURSE ---
This patient, Fanny Hopson, was transferred to [facility] on 02/23/20 at 2115. Personal belongings sent with patient. Belongings list checked and signed with receiving. Report given to Khloe KNIGHT. Appropriate documentation sent with patient.
[2020-02-24] VITALS (8 sets, daily range): BP systolic 131; BP diastolic 74; PULSE 67–86; RESP 16; TEMP 36.7; O2SAT 95–98
[2020-02-24] MEDS: methylPREDNISolone SOD SUCC 40 MG VIAL IV PUSH ×2 (06:18→11:16)
[2020-02-24] MEDS: LEVOTHYROXINE SODIUM 100 MCG TABLET PO (06:19)
[2020-02-24] MEDS: ESCITALOPRAM OXALATE 10 MG TABLET PO (09:04)
[2020-02-24] MEDS: hydroCHLOROthiazide 12.5 MG CAPSULE PO (09:04)
[2020-02-24] MEDS: VALSARTAN 160 MG TABLET 320 MG PO (09:04)
[2020-02-24] MEDS: amLODIPine BESYLATE 5 MG TABLET PO (09:04)
[2020-02-24] MEDS: ALBUTEROL SULFATE NEB 2.5 MG/0.5 ML INH 5 MG INHALATION (09:24)
[2020-02-24] MEDS: IPRATROPIUM BR 0.02% INH SOLN 0.5 MG/2.5 ML VIAL INHALATION (09:25)
[2020-02-24 10:07] LABS: Anion Gap 6 mmol/L (8-16); Blood Urea Nitrogen 11 mg/dL (9-20); Calcium 9.3 mg/dL (8.4-10.2); Carbon Dioxide 27 mmol/L (22-30); Chloride 100 mmol/L (98-107); Estimated CRCL calculation 93 ml/min; Estimated Glomerular Filt Rate > 60; Glucose 213 mg/dL (75-110); Potassium 3.5 mmol/L (3.4-5.0); Sodium 133 mmol/L (137-145)
--- NOTE | 2020-02-24 11:44 | HOMEO2EVAL ---
Home Oxygen Evaluation RC: Home Oxygen (O2) Evaluation Start: 02/24/20 11:09 Freq: ONCE Status: Active Protocol: RPE Activity Type Activity Date Activity User E-Sign Co-Sign Detail Recorded Client Recorded Date Recorded By Document 02/24/20 11:20 [employer] [email or web address] 02/24/20 11:43 DJO Document 02/24/20 11:25 DJO [email or web address] 02/24/20 11:43 DJO Document 02/24/20 11:35 [employer] [email or web address] 02/24/20 11:43 DJO 02/24/20 02/24/20 02/24/20 11:20 11:25 11:35 Home O2 Evaluation Test Phase Resting Exercise Resting Oxygen Delivery Room Air Room Air Room Air Pulse Oximetry (90-100 %) 97 95 96 Pulse Rate (60-100 beats/min) 70 86 84 Activity Tolerance Excellent
--- NOTE | 2020-02-24 11:44 | PCRCNOTE ---
HOME O2 EVAL COMPETE, NO REQUIREMENTS
--- NOTE | 2020-02-24 12:07 | PM.DS ---
DS: Admitting Diagnosis Admitting Diagnosis Admitting Diagnosis: COPD exacerbation/respiratory failure DS: Discharge Diagnosis Discharge Diagnosis (1) Acute exacerbation of chronic obstructive airways disease: Code(s): J44.1 - Chronic obstructive pulmonary disease with (acute) exacerbation Status: Acute Assessment and Plan: Pt feels better since admission continue breathing treatments and IV steroids and IV azithromycin, hopeful dc shlomo AM, pt is on room air. Pt will need inhalers refilled on discharge, Pt to follow with lung doctor apt already made. Wean down iv steroids later today. (2) Respiratory failure with hypoxia: Qualifiers: Chronicity: acute Qualified Code(s): J96.01 - Acute respiratory failure with hypoxia Code(s): J96.91 - Respiratory failure, unspecified with hypoxia Status: Resolved Assessment and Plan: Pt is doing well on breathing treatments and IV steroids and IV azithromycin (3) Hypothyroid: Code(s): E03.9 - Hypothyroidism, unspecified Status: Acute Assessment and Plan: Continue levothyoxine (4) Hypertension: Code(s): I10 - Essential (primary) hypertension Status: Acute Assessment and Plan: Propranolol on hold due to bronchospasm DS: Summary Hospital Course Reason for hospitalization: Chief complaint: COPD exacerbation/respiratory failure Narrative: Chief complaint: COPD exacerbation/respiratory failure Narrative: Fanny Hopson is a 74 year old male admitted with sob, pt has history of COPD. Pt was admitted in jul with similar complaints. Pt states he has been off his inhalers not been taking any. Pt is due to see lung specialist soon. Pt has been having a bad cold since thursday which has got worse. Was given zpac from his PCP but it did not help him felt like he was getting worse. Pt drove himself to ED. Denies any covid contacts. Pt has a 60 year smoking pack history gave up 5 years ago. 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 Hospital Course: Patient with exacerbation of COPD, wants to be discharged home today as he is worried about his blind dog who is home alone and there is no one is able to take care of the dog. patient is clinically doing better he is not requiring any oxygen, nurse walked with him on room air and he has no difficulty with ambulation, will discharge the patient home today with instruction to follow up with his primary care provider as soon as possible. patient is instructed if any symptoms redevelop to go to nearest ER. Status at Discharge Functional status at discharge: independent ambulation Overall status at discharge: patient is back to baseline Time Spent with Patient Time attestation: Total time spent providing and/or coordinating discharge services: Time spent: Less than 30 minutes Exam Const: General: comfortable and no acute distress HENMT: General nose exam: Normal nares present Eyes: Sclera: sclerae normal Neck: Neck: supple Resp: Other: Bilateral fair air entry with wheezing Cardio: Rate: regular rate Rhythm: regular rhythm GI: GI Palp: Yes Soft to palpation Auscultation: normal bowel sounds Skin: General skin exam: normal color Neuro: General: gait normal Sensory Exam: normal sensation Extrem: General: normal to inspection Psych: Affect: Anxious affect present DS: Data Data Completed and Pending Labs on day of discharge: Labs from last 24 hours 02/24/20 08:54 Sodium 133 L Potassium 3.5 Chloride 100 Carbon Dioxide 27 Anion Gap 6 L BUN 11 Creatinine 0.70 Estim Creat Clear Calc 93 Estimated GFR > 60 Glucose 213 H Calcium 9.3 Preliminary micro results at discharge 02/23/20 05:18 Blood Culture - Preliminary Blood 02/23/20 05:18 Blood Culture - Preliminary Blood Discharge Plan Discharge Attending physician on discharge: Jessica Allen Consulting providers: Ross Franz ; Shante Sharma ; Jesse
== END 2020-02-24 12:45 | disposition home or self-care (01) ==
LOC: ANHED 06:03 → ANH2MED 02-24 12:07 → ANHIMU 02-27 14:28
PROVIDERS: Admitting Provider Family Medicine; Emergency Provider Emergency Medicine; PCP Internal Medicine; Visit Provider Family Medicine
DX: J44.1 Chronic obstructive pulmonary disease with (acute) exacerbation (principal); J96.01 Acute respiratory failure with hypoxia; Z87.891 Personal history of nicotine dependence; F10.20 Alcohol dependence, uncomplicated; R79.89 Other specified abnormal findings of blood chemistry; G25.0 Essential tremor; I10 Essential (primary) hypertension; E03.9 Hypothyroidism, unspecified; F41.9 Anxiety disorder, unspecified
CPT/HCPCS: 36415; 36600; 71045; 80048; 82805; 83605; 83880; 84484; 85025; 85610; 85730; 87040; 87076; 93005; 94002; 94640; 96361; 96365; 96366; 96367; 96375; 96376; 99285; A9270; G0378; J0456; J2920; J2930; J3475; J7040

== ENCOUNTER 2020-04-11 12:35 | Outpatient (CLI) | payer MEDICARE, SELFPAY ==
--- NOTE | 2020-04-16 15:12 | WPDPFTINT ---
PFT Interpretation PFT Interpretation: DOS: 04/11/2020 REQUESTING: Dr. Duglas Mckinley, REASON FOR TESTING: shortness of breath PULMONARY FUNCTION TESTS Results are reproducible. Spirometry: FEV1 is 66% moderately decreased, 1.84 L. FVC is normal 83%. FEV1% is decreased consistent with airflow obstruction. Severe decrease in [id number]%, 26% predicted. No bronchodilator was given. Lung volumes: TLC 115%. RV increased 148% consistent with moderate air trapping. Airway resistance increased 479%. Diffusion: DLCO normal 93%. Flow volume loop: Severe scooping of the expiratory limb consistent with obstruction IMPRESSION: Moderate obstructive ventilatory impairment, severe in the small airways, with moderate air trapping and increased airway resistance. No bronchodilator was given. A trial of bronchodilator could be considered. Rosa Elena Smith MD
== END 2020-04-11 12:36 | disposition home or self-care (01) ==
PROVIDERS: PCP Internal Medicine; Visit Provider Internal Medicine
DX: J42 Unspecified chronic bronchitis (principal); R06.00 Dyspnea, unspecified
CPT/HCPCS: 94375; 94726; 94729

== ENCOUNTER 2020-06-20 01:37 | Emergency (ER) | payer MEDICARE, SELFPAY ==
--- NOTE | ~2020-06-20 | XR_ITS ---
EXAMINATION: XR chest 1V portable INDICATION: Shortness of breath and cough TECHNIQUE: Portable AP chest at 0243 hours COMPARISON: 02/23/2020 FINDINGS: The lungs are free of acute opacities. There is no pleural effusion or pneumothorax. The ca rdiomediastinal silhouette is normal. 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 IMPRESSION: 1. No acute cardiopulmonary abnormality. Reviewed, dictated and finalized at location A. EGE DIRECTOR
--- NOTE | 2020-06-20 01:40 | ECG_ITS ---
Measurements Intervals [place] Rate: 79 P: 48 NM: 176 QRS: -14 QRSD: 106 T: 30 QT: 376 QTc: 431 Interpretive Statements SINUS RHYTHM CANNOT RULE OUT SEPTAL INFARCT, AGE INDETERMINATE BASELINE ARTIFACT- I, II, AVR, AVL, AVF, V1-V2, V4, V6 ABNORMAL ECG Electronically Signed On 06-20-2020 7:05:34 TURF GROWER by George Molina D.O.
[2020-06-20 01:41] VITALS: BP 178/93; PULSE 94; RESP 19; TEMP 36.7; O2SAT 100
[2020-06-20 01:49] VITALS: PULSE 85
[2020-06-20] MEDS: ONDANSETRON INJ 4 MG/2 ML VIAL IV PUSH (02:04)
[2020-06-20 02:08] LABS: Basophils Percent Auto 0.6 % (0.2-1.2); Eosinophils Absolute Auto 0.3 K/mm3 (0-0.3); Eosinophils Percent Auto 4.2 % (0-4.4); Hematocrit 45.4 % (42.0-52.0); Hemoglobin 15.9 g/dL (14.0-18.0); Immature Granulocyte Absolute 0.02 K/mm3 (0.00-0.031); Immature Granulocyte Percent A 0.3 % (0-0.5); Lymphocytes Absolute Auto 1.49 K/mm3 (0.9-3.2); Lymphocytes Percent Auto 22.6 % (18.3-44.2); Mean Corpuscular Hemoglobin 33.2 pg (26-34); Mean Corpuscular Volume 94.8 fl (80-100); Monocytes Absolute Auto 1.1 K/mm3 (0.1-0.6); Monocytes Percent Auto 16.4 % (2.6-8.5); Neutrophils Absolute Auto 3.7 K/mm3 (1.3-6.7); Neutrophils Percent Auto 55.9 % (45.5-73.1); Platelet Count Result 194 k/mm3 (150-375); Red Blood Count 4.79 M/mm3 (4.6-6.20); Red Cell Distribution Width 12.9 % (11.5-14.5); White Blood Count 6.6 K/mm3 (4.5-10.0)
[2020-06-20] MEDS: ALBUTEROL SULFATE (*SP) AEROSOL 1 PUFF 4 PUFF INHALATION (02:11)
[2020-06-20 02:22] LABS: Alanine Aminotransferase 31 U/L (4-50); Albumin Level 4.5 g/dL (3.5-5.1); Alkaline Phosphatase 70 U/L (38-126); Anion Gap 9 mmol/L (8-16); Aspartate Amino Transferase 32 U/L (17-59); Bilirubin,Total 0.9 mg/dL (0.2-1.3); Blood Urea Nitrogen 10 mg/dL (9-20); CRP 0.5 mg/dL (<1.0); Carbon Dioxide 27 mmol/L (22-30); Chloride 95 mmol/L (98-107); Estimated CRCL calculation 97 ml/min; Estimated Glomerular Filt Rate > 60; Glucose 111 mg/dL (75-110); Potassium 3.8 mmol/L (3.4-5.0); Sodium 131 mmol/L (137-145)
[2020-06-20 02:23] LABS: Partial Thromboplastin Time 28.5 SECONDS (22.3-36.8); Prothrombin Time 13.7 Seconds (11.1-14.7)
[2020-06-20 02:28] LABS: D Dimer 0.27 ug/mL (<0.48)
[2020-06-20 02:31] LABS: NT Pro B Type Natriuretic Pept 177 PG/ML (5-100); Troponin I < 0.012 ng/mL (0.000-0.034)
[2020-06-20 02:33] LABS: Alveolar/Arterial O2 Gradient 36.4 mmHg; Base Excess ABG -1.3 mEq/l (+/-2.0); Carboxyhemoglobin 0.6 % THb (0-2.0); Fractional Inspired Oxygen 21 %; HCO3 ABG 20.6 mEq/l (22.0-26.0); Methemoglobin ABG 0.3 %THb (0-1.5); Oxygen Content ABG 20.9 %vol (16.0-22.0); Oxygen Saturation ABG 96.7 % (95.0-100.0); Oxyhemoglobin 95.4 % THb (90.0-100.0); PCO2 ABG 27.9 mmHg (35.0-45.0); PO2 ABG 79.9 mmHg (80.0-100.0); Reduced Hemoglobin 3.7 %THb (0-5.0); Total Hemoglobin 15.6 g/dL (12.0-18.0); pH ABG 7.486 (7.350-7.450)
[2020-06-20 02:34] LABS: Device ROOM AIR; Modified Allen's Test Pass; Site Drawn RIGHT RADIAL
[2020-06-20 02:35] VITALS: PULSE 86; RESP 16
[2020-06-20 03:04] VITALS: BP 157/79; PULSE 90; RESP 21; O2SAT 99
--- NOTE | 2020-06-20 03:12 | ED.SOB ---
HPI - SOB/Dyspnea General Chief Complaint: Shortness of Breath/Dyspnea Stated Complaint: SOB Time Seen by Provider: 06/20/20 01:39 Source: patient Mode of arrival: ambulatory Limitations: no limitations History of Present Illness HPI Narrative: This patient is a 74 year old male who presents for evaluation of shortness of breath x 2 days. He states over the past 2 days he has had chills but denies fever. He also reports runny nose, congestion and diarrhea. He denies chest pain. He states he feels short of breath and it is worse at night. He only reports a mild cough. He reports he has been using his nebulizer multiple times with out relief. He reports he uses oxygen as needed. He has also been monitoring his oxygen saturation, and it has been normal. Related Data Allergies Allergy/AdvReac Type Severity Reaction Status Date / Time No Known Allergies Allergy Verified 03/27/20 11:06 Review of Systems Review of Systems: All systems reviewed & are unremarkable except as noted in HPI and below Constitutional: Constitutional: Reports chills, Reports fatigue and Denies fever(s) ENT: Reports nasal congestion and Reports sore throat Cardiovascular: Cardiovascular: Denies chest pain Respiratory: Respiratory: Reports cough and Reports dyspnea Gastrointestinal: Gastrointestinal: Denies abdominal pain, Reports diarrhea, Reports nausea and Denies vomiting PMFSH Past Medical History Medical History (Updated 06/20/20 @ 04:58 by Sana Davila MD) Alcoholism Anxiety Cataracts, bilateral COPD (chronic obstructive pulmonary disease) Dupuytren's contracture B/L. Right s/p release Elevated liver enzymes Elevated PSA Essential tremor History of rectal polyps Hyperglycemia Hypertension Hypothyroid Wears glasses Surgical History Surgical History No history of previous surgery Family History Family History Mother Alzheimer disease Congestive heart failure Father COPD (chronic obstructive pulmonary disease) Smoking Sibling Breast cancer Social History Social History Social History: Patient lives at home alone with his dog who is elderly/blind. He does not wish to designate a surrogate MDM as he has no living family in the area. He wishes to be a Full code. His PCP is Dr. Mckinley Smoking packs per day: 3 Smoking cigarettes per day: 60.0 Years smoked: 35 Smoking pack-years: 105.00 Smoking status: Former smoker Tobacco type: cigarettes Second hand tobacco smoke exposure: Yes Smoking end date: 06/08/13 Additional smoking assessment comments: Smoked 2ppd for roughly 30 years Alcohol intake: current Drinks per week: 21 Substance use: never Gender identity (if verbalized by the patient): Male Spiritual care concerns: No Exam Const: General: no acute distress and alert Orientation/consciousness: patient oriented x3 HENMT: Head: normocephalic and atraumatic Face and sinus: face symmetric Mouth: Yes Normal oral and palatal mucosa present, Yes lip normal, Yes oropharynx normal and Yes moist mucous membranes Eyes: EOM: EOMs intact bilaterally Resp: Effort & Inspection: normal respiratory effort and no retractions Auscultation: clear to auscultation bilaterally Other: patient able to speak in complete sentences Cardio: Rate: regular rate Rhythm: regular rhythm Heart sounds: no murmurs GI: GI Palp: Yes Soft to palpation, No Tenderness to palpation present (GI) and No Guarding due to palpation present (GI) Auscultation: normal bowel sounds Neuro: General: patient oriented x3 and moves all extremities Extrem: General: no pedal edema Course Reevaluation(s) Reevaluation #1: PAtient reports he feels better. He states he thinks his problems is anxiety. He does appear to be anxious and tremulous Da
[2020-06-20] MEDS: chlordiazePOXIDE (*CRX) 25 MG CAPSULE PO (03:45)
[2020-06-20 04:25] VITALS: BP 146/76; PULSE 86; RESP 16; O2SAT 96
[2020-06-20 05:19] VITALS: BP 154/90; PULSE 80; RESP 24; O2SAT 96
[2020-06-20 18:18] LABS: SARS-CoV-2 RNA PCR Negative
== END 2020-06-20 05:19 | disposition home or self-care (01) ==
PROVIDERS: Emergency Provider General Practice; PCP Internal Medicine
DX: F41.9 Anxiety disorder, unspecified (principal); R06.00 Dyspnea, unspecified; Z20.822 Contact with and (suspected) exposure to COVID-19; J44.9 Chronic obstructive pulmonary disease, unspecified; Z87.891 Personal history of nicotine dependence; E78.5 Hyperlipidemia, unspecified; E03.9 Hypothyroidism, unspecified; I10 Essential (primary) hypertension; R94.31 Abnormal electrocardiogram [ECG] [EKG]
CPT/HCPCS: 36415; 36600; 71045; 80048; 80076; 82375; 82805; 83050; 83880; 84484; 85025; 85380; 85610; 85730; 86140; 87804; 93005; 94640; 96374; 99284; A9270; C9803; J2405; U0003; U0005

== ENCOUNTER 2021-05-07 00:23 | Observation (INO) | payer MEDICARE, SELFPAY ==
[2021-05-07] VITALS (18 sets, daily range): BP systolic 111–194; BP diastolic 50–99; PULSE 62–87; RESP 16–26; TEMP 36.4–36.7; O2SAT 93–99; BMI 35.4
--- NOTE | ~2021-05-07 | XR_ITS ---
EXAMINATION: XR chest 1V portable 05/07/2021 01:25 INDICATION: Shortness of breath and wheezing for 2 days. Smoker. PROCEDURE: AP portable chest COMPARISON: Comparison to multiple prior studies sequentially, with oldest reviewed study dated 07/18. FINDINGS: The lungs are clear. The cardiomediastinal silhouette is within normal limits. There are no pleural effusions. There is no pneumothorax suspected. IMPRESSION: 1: NO ACUTE CARDIOPULMONARY DISEASE. Reviewed, dictated and finalized at location D. [employer]
--- NOTE | 2021-05-07 00:42 | ECG_ITS ---
Measurements Intervals [place] Rate: 76 P: 10 [place]: 161 QRS: 13 QRSD: 106 T: -3 QT: 409 QTc: 460 Interpretive Statements SINUS RHYTHM VENTRICULAR PREMATURE COMPLEX CANNOT RULE OUT SEPTAL INFARCT, AGE INDETERMINATE BASELINE ARTIFACT- I, II, III, AVR, AVL, AVF, V1-V6 ABNORMAL ECG Electronically Signed On 05-07-2021 6:43:59 [employer]TURE FABRICATOR REPAIRER by George Molina D.O.
[2021-05-07] MEDS: methylPREDNISolone SOD SUCC 125 MG VIAL IV PUSH (00:56)
[2021-05-07] MEDS: ALBUTEROL SULFATE NEB 2.5 MG/0.5 ML INH 10 MG INHALATION (00:57)
[2021-05-07] MEDS: IPRATROPIUM BR 0.02% INH SOLN 0.5 MG/2.5 ML VIAL 1 MG INHALATION (00:58)
[2021-05-07 01:00] LABS: Basophils Absolute Auto 0.1 K/mm3 (0.0-0.1); Basophils Percent Auto 1.2 % (0.2-1.2); Eosinophils Absolute Auto 0.7 K/mm3 (0-0.3); Hematocrit 46.1 % (42.0-52.0); Hemoglobin 16.1 g/dL (14.0-18.0); Immature Granulocyte Absolute 0.03 K/mm3 (0.00-0.031); Immature Granulocyte Percent A 0.4 % (0-0.5); Lymphocytes Absolute Auto 2.35 K/mm3 (0.9-3.2); Lymphocytes Percent Auto 31.6 % (18.3-44.2); Mean Corpuscular HGB Conc 34.9 g/dl (32-36); Mean Corpuscular Hemoglobin 33.6 pg (26-34); Mean Corpuscular Volume 96.2 fl (80-100); Mean Platelet Volume 9.7 fl (7.4-10.4); Monocytes Absolute Auto 1.2 K/mm3 (0.1-0.6); Monocytes Percent Auto 15.7 % (2.6-8.5); Neutrophils Absolute Auto 3.1 K/mm3 (1.3-6.7); Neutrophils Percent Auto 42.1 % (45.5-73.1); Platelet Count Result 236 k/mm3 (150-375); Red Blood Count 4.79 M/mm3 (4.6-6.20); White Blood Count 7.4 K/mm3 (4.5-10.0)
--- NOTE | 2021-05-07 01:09 | ED.GENADULT ---
HPI - General Adult General Chief complaint: Shortness of Breath/Dyspnea Stated complaint: sob Time Seen by Provider: 05/07/21 00:31 History of Present Illness HPI narrative: Patient 75-year-old gentleman who presents the emergency department with chief complaint of shortness of breath. Patient reports he has history of COPD and uses nebulizers at home he also has a oxygen concentrator that he has purchased without a prescription and has been contemplating using that. Patient states that he has been having increasing shortness of breath over the last several days and reports that worsened with ambulation and improved with rest. Patient states he had a dry cough that is been productive of some clear sputum. Patient states that symptoms or not improved by anything. Patient reports that he quit smoking about 10 years ago Related Data Home Medications Medication Instructions Recorded Confirmed fluticasone propionate 50 2 spray INTRANASAL DAILY 01/23/21 01/23/21 mcg/actuation nasal spray,suspension Allergies Allergy/AdvReac Type Severity Reaction Status Date / Time No Known Allergies Allergy Verified 07/03/20 10:05 Review of Systems Review of Systems: A 10 system review of systems was completed on the patient and is negative except for what is stated in the HPI. Nursing and ancillary documentation was reviewed. [facility] Past Medical History Medical History Alcoholism Anxiety Cataracts, bilateral COPD (chronic obstructive pulmonary disease) Dupuytren's contracture B/L. Right s/p release Elevated liver enzymes Elevated PSA Essential tremor History of rectal polyps Hyperglycemia Hypertension Hypothyroid Wears glasses Surgical History Surgical History No history of previous surgery Family History Family History Mother Alzheimer disease Congestive heart failure Father COPD (chronic obstructive pulmonary disease) Smoking Sibling Breast cancer Social History Social History Social History: Patient lives at home alone with his dog who is elderly/blind. He does not wish to designate a surrogate MDM as he has no living family in the area. He wishes to be a Full code. His PCP is Dr. Mckinley Smoking packs per day: 3 Smoking cigarettes per day: 60.0 Years smoked: 35 Smoking pack-years: 105.00 Smoking status: Former smoker Tobacco type: cigarettes Second hand tobacco smoke exposure: Yes Smoking end date: 06/08/13 Additional smoking assessment comments: Smoked 2ppd for roughly 30 years Alcohol intake: current Drinks per week: 21 Alcohol use details: Last drink 2 days prior to this admission Substance use: never Gender identity (if verbalized by the patient): Male Spiritual care concerns: No Exam Narrative: GENERAL: Well-appearing, well-nourished, and in no acute distress. HEAD: Normocephalic, atraumatic. EYES: PERRLA and EOMI. ENT: Nares clear, no rhinorrhea or epistaxis. Mucous membranes moist. NECK: Supple. CHEST: Audible wheezes to auscultation. No respiratory distress. HEART: Regular rate and rhythm. No murmur heard. Normal peripheral pulses. ABDOMEN: Soft, nontender, nondistended, normal active bowel sounds. EXTREMITIES: Normal range of motion. No edema. SKIN: Warm, dry, no rash. NEURO: No focal deficits. Alert and oriented x3. PSYCH: Normal mood and affect. Course Vital Signs Vital signs: Vital Signs Temperature 36.4 C 05/07/21 00:33 Pulse Rate 77 05/07/21 00:33 Respiratory Rate 26 H 05/07/21 00:33 Blood Pressure 194/99 H 05/07/21 00:33 Pulse Oximetry 95 05/07/21 00:33 Temperature 36.4 C 05/07/21 00:33 Pulse Rate 77 05/07/21 00:33 Respiratory Rate 26 H 05/07/21 00:33 Bl
[2021-05-07 01:23] LABS: Lactic Acid Reflex 1.3 mmol/L (0.7-2.1)
[2021-05-07 01:25] LABS: Alanine Aminotransferase 38 U/L (4-50); Albumin Level 4.9 g/dL (3.5-5.1); Alkaline Phosphatase 71 U/L (38-126); Anion Gap 11 mmol/L (8-16); Aspartate Amino Transferase 41 U/L (17-59); Bilirubin,Total 0.6 mg/dL (0.2-1.3); Blood Urea Nitrogen 12 mg/dL (9-20); Calcium 9.6 mg/dL (8.4-10.2); Carbon Dioxide 23 mmol/L (22-30); Chloride 99 mmol/L (98-107); Estimated CRCL calculation 70 ml/min; Estimated Glomerular Filt Rate > 60; Glucose 137 mg/dL (65-110); Potassium 4.1 mmol/L (3.4-5.0); Sodium 133 mmol/L (137-145)
[2021-05-07 01:37] LABS: NT Pro B Type Natriuretic Pept 100 pg/mL (5-100); Troponin I < 0.012 ng/mL (0.000-0.034)
[2021-05-07 02:35] LABS: Add Urine Microscopic? NO; Appearance Urine Clear (Clear); Bilirubin Urine Negative (Negative); Blood Urine Negative (Negative); Color Urine Yellow (Yellow); Glucose Urine UA Negative (Negative); Ketones Urine Negative (Negative); Leukocyte Esterase Ur Negative LEU/UL (Negative); Nitrate Urine Negative (Negative); Protein Urine Negative (Negative); Specific Grav Ur 1.013 (1.001-1.035); Urobilinogen Urine Negative mg/dL (<2.0)
[2021-05-07 04:48] LABS: Troponin I < 0.012 ng/mL (0.000-0.034)
--- NOTE | 2021-05-07 06:20 | PC.NURSE ---
This patient, Fanny Hopson Jr., was admitted to 3 Med Surg Room 313-01. Patient/family oriented to hospital policies and general routines including ID bracelet, bed and alarms, visiting hours, pain management, procedures, bathroom and other care routines, personal items, smoking policy, room service/diet, and visiting hours. Information on how to activate the Rapid Response Team has been discussed. Patient/Family are encouraged to report perceived risks to care and to ask questions if they do not understand what they are told or what they should do.
[2021-05-07] MEDS: methylPREDNISolone SOD SUCC 125 MG VIAL 60 MG IV PUSH ×3 (06:30→22:24)
[2021-05-07] MEDS: IPRATROPIUM BR 0.02% INH SOLN 0.5 MG/2.5 ML VIAL INHALATION ×2 (08:25→18:56)
[2021-05-07] MEDS: ALBUTEROL SULFATE NEB 2.5 MG/0.5 ML INH 5 MG INHALATION ×2 (08:25→18:56)
--- NOTE | 2021-05-07 11:21 | PC.NURSE ---
On 05/07/21, the student, [ Yajaira Green], provided care and completed [facility] documentation on this patient. I have reviewed the student's documentation and agree with the findings.
--- NOTE | 2021-05-07 15:20 | PC.NURSE ---
On 05/07/21, the student, [ Yajaira Green], provided care and completed [facility] documentation on this patient. I have reviewed the student's documentation and agree with the findings.
--- NOTE | 2021-05-07 16:11 | PM.IMHP ---
H&P: HPI History of Present Illness Date/Time: 05/07/21 16:11 Pt is a 75 yo male w/ hx of COPD, HTN, hypothyroid, anxiety, presented to the hospital for increasing sob and was subsequently admitted for COPD exacerbation. Pt states over the past 4-5 days he has been getting increasingly short of breath with exertion. He reports mild cough, rhinorrhea, and congestion slightly more than his baseline. He has been using his rescue inhaler and doing nebs approximately 4 times daily with no relief. Pt states he has also been very anxious which tends to exacerbate his COPD further. He reports 3 exacerbations last year and 2 already this year. He does not have a traveling secretary. No fevers, chills, bodyaches. He is fully vaccinated x3 for covid. Pt admits that he normally takes Trelogy for his COPD but ran out of it 2 weeks ago. He states the hernandez went up and he is unable to afford it. He does not have a traveling secretary currently and his COPD medications are managed by his PCP. Denies hx of alcoholism or alcohol withdrawal but does admit that he drinks 5-6 beers every day. Last drink was yesterday and he states he had a few beers prior to coming to the hospital. Chief Complaint: sob Review of Systems Review of Systems: General: Denies fevers, chills, bodyaches, or fatigue Eyes: Denies vision changes or eye pain ENT: + nasal congestion, denies sore throat Respiratory: + cough, +shortness of breath Cardiovascular: Denies chest pain, palpitations, or lower extremity edema Gastrointestinal: Denies abdominal pain, vomiting, or diarrhea Genitourinary: Denies dysuria or urinary frequency Musculoskeletal: Denies back pain or muscle aches Neurological: Denies headache, paraesthesias, or motor weakness Integumentary: Denies rash or other skin lesions Psychiatric: Denies SI/HI, +anxiety PMFSH Past Medical History Medical History Alcoholism Anxiety Cataracts, bilateral COPD (chronic obstructive pulmonary disease) Dupuytren's contracture B/L. Right s/p release Elevated liver enzymes Elevated PSA Essential tremor History of rectal polyps Hyperglycemia Hypertension Hypothyroid Wears glasses Surgical History Surgical History No history of previous surgery Family History Family History Mother Alzheimer disease Congestive heart failure Father COPD (chronic obstructive pulmonary disease) Smoking Sibling Breast cancer Social History Social History Social History: Patient lives at home alone with his dog who is elderly/blind. He does not wish to designate a surrogate MDM as he has no living family in the area. He wishes to be a Full code. His PCP is Dr. Mckinley Smoking packs per day: 3 Smoking cigarettes per day: 60.0 Years smoked: 35 Smoking pack-years: 105.00 Smoking status: Former smoker Second hand tobacco smoke exposure: Yes Additional smoking assessment comments: Smoked 2ppd for roughly 30 years Alcohol intake: current Drinks per week: 50 Alcohol use details: Last drink 2 days prior to this admission Substance use: never Substance use type: does not use Other substance usage details: timi luna Gender identity (if verbalized by the patient): Male Spiritual care concerns: No Meds Home Medications and Allergies Home Medications Medication Instructions Recorded Confirmed Type levothyroxine 100 mcg tablet 100 mcg PO DAILY #90 tablet 09/06/19 05/07/21 Rx doxepin 25 mg capsule 25 mg PO BID PRN #180 cap 11/14/20 05/07/21 Rx propranolol 80 mg tablet 80 mg PO BID #180 tablet 12/04/20 05/07/21 Rx albuterol sulfate 90 mcg/actuation 2 puff INHALATION QID PRN #18 g 12/11/20 05/07/21 Rx aerosol inhaler albuterol sulfate 2.5 mg INHALATION Q4-6H PRN #60 01/02/
[2021-05-07] MEDS: amLODIPine BESYLATE 5 MG TABLET PO (17:43)
[2021-05-07] MEDS: LEVOTHYROXINE SODIUM 100 MCG TABLET PO (17:43)
[2021-05-07] MEDS: ESCITALOPRAM OXALATE 10 MG TABLET 20 MG PO (17:43)
[2021-05-07] MEDS: FLUTICASONE PROPIONATE 0.05% NA SPR 16 GM BTL (*BKC) 2 SPRAY NASAL (17:43)
[2021-05-07] MEDS: VALSARTAN 160 MG TABLET 320 MG PO (17:44)
[2021-05-07] MEDS: hydroCHLOROthiazide 12.5 MG CAPSULE PO (17:44)
--- NOTE | 2021-05-07 18:05 | PCRCNOTE ---
Window of time for administration has passed. See next scheduled administration.
[2021-05-07] MEDS: PROPRANOLOL HCL 40 MG TABLET 80 MG PO (22:23)
[2021-05-08 03:28] VITALS: PULSE 66; RESP 18
[2021-05-08] MEDS: ALBUTEROL SULFATE NEB 2.5 MG/0.5 ML INH 5 MG INHALATION ×2 (03:28→08:43)
[2021-05-08] MEDS: IPRATROPIUM BR 0.02% INH SOLN 0.5 MG/2.5 ML VIAL INHALATION ×2 (03:28→08:44)
[2021-05-08 03:38] VITALS: PULSE 62; RESP 18
[2021-05-08 06:00] VITALS: BP 136/69; PULSE 65; RESP 18; TEMP 36.1; O2SAT 96
[2021-05-08 06:41] LABS: Basophils Percent Auto 0.1 % (0.2-1.2); Hemoglobin 14.2 g/dL (14.0-18.0); Immature Granulocyte Absolute 0.08 K/mm3 (0.00-0.031); Immature Granulocyte Percent A 0.8 % (0-0.5); Lymphocytes Percent Auto 9.4 % (18.3-44.2); Mean Corpuscular HGB Conc 34.6 g/dl (32-36); Mean Corpuscular Volume 95.3 fl (80-100); Monocytes Absolute Auto 0.6 K/mm3 (0.1-0.6); Monocytes Percent Auto 6.7 % (2.6-8.5); Neutrophils Absolute Auto 7.9 K/mm3 (1.3-6.7); Platelet Count Result 188 k/mm3 (150-375); Red Cell Distribution Width 11.9 % (11.5-14.5); White Blood Count 9.5 K/mm3 (4.5-10.0)
[2021-05-08 06:57] LABS: Hemoglobin A1C 5.3 % (<5.7)
[2021-05-08 07:12] LABS: Alanine Aminotransferase 28 U/L (4-50); Alkaline Phosphatase 50 U/L (38-126); Anion Gap 6 mmol/L (8-16); Aspartate Amino Transferase 28 U/L (17-59); Bilirubin,Total 0.6 mg/dL (0.2-1.3); Blood Urea Nitrogen 12 mg/dL (9-20); Calcium 9.4 mg/dL (8.4-10.2); Carbon Dioxide 28 mmol/L (22-30); Chloride 99 mmol/L (98-107); Estimated CRCL calculation 86 ml/min; Estimated Glomerular Filt Rate > 60; Glucose 194 mg/dL (65-110); Potassium 3.4 mmol/L (3.4-5.0); Sodium 133 mmol/L (137-145)
[2021-05-08 07:30] LABS: Thyroid Stimulating Hormone Reflex 0.905 uIU/mL (0.465-4.68)
[2021-05-08] MEDS: FLUTICASONE/UMECLIDIN/VILANTER 100-62.5-25 MCG ELLIPTA 1 PUFF INHALATION (08:44)
[2021-05-08 08:45] VITALS: PULSE 64; RESP 18; O2SAT 93
[2021-05-08 08:57] VITALS: PULSE 61; RESP 18
[2021-05-08] MEDS: predniSONE 20 MG TABLET 60 MG PO (09:38)
[2021-05-08] MEDS: hydroCHLOROthiazide 12.5 MG CAPSULE PO (09:38)
[2021-05-08] MEDS: PROPRANOLOL HCL 40 MG TABLET 80 MG PO (09:38)
[2021-05-08] MEDS: amLODIPine BESYLATE 5 MG TABLET PO (09:39)
[2021-05-08] MEDS: VALSARTAN 160 MG TABLET 320 MG PO (09:39)
[2021-05-08] MEDS: LEVOTHYROXINE SODIUM 100 MCG TABLET PO (09:39)
[2021-05-08] MEDS: ESCITALOPRAM OXALATE 10 MG TABLET 20 MG PO (09:39)
[2021-05-08] MEDS: FLUTICASONE PROPIONATE 0.05% NA SPR 16 GM BTL (*BKC) 2 SPRAY NASAL (09:40)
--- NOTE | 2021-05-08 10:10 | PM.DS ---
DS: Admitting Diagnosis Discharge Date 05/08/31 Admitting Diagnosis copd exacerbation DS: Discharge Diagnosis Discharge Diagnosis (1) Acute exacerbation of chronic obstructive airways disease: Code(s): J44.1 - Chronic obstructive pulmonary disease with (acute) exacerbation Status: Acute Assessment and Plan: -suspect current exacerbation is secondary to running out of his Trelegy -nebs and solumedrol given with great improvement, off of oxygen x 24 hours, no longer wheezing, no sob w/ exertion, per respiratory he was 93-94% after having walked the halls today -spoke w/ Pulm, he will follow up outpatient in1 week, was able to provide him some Trelegy samples. Pt states as of Jun 08 his insurance will start covering it again, just needs a months worth which was provided -Started prednisone today, will complete 5 day taper on discharge -No pneumonia on CXR and cough today is dry and non productive, however as he is high risk I will provide rescue abx z pack which I explained he should start if his cough becomes productive or if he develops fever. Pt verbalizes understanding. (2) Anxiety: Code(s): F41.9 - Anxiety disorder, unspecified Status: Acute Assessment and Plan: -Seems to be exacerbated by his COPD and vice versa -On Doxepin but states it knocks him out too much, will try discharging him with small dose of xanax to be used prn instead. Only takes Doxepin once in a blue wilson. Pt is aware he needs to follow up with his pcp for further management of his anxiety (3) Hypertension: Qualifiers: Hypertension type: essential hypertension Qualified Code(s): I10 - Essential (primary) hypertension Code(s): I10 - Essential (primary) hypertension Status: Acute Assessment and Plan: -Stable -Continued home meds (4) Hypothyroid: Code(s): E03.9 - Hypothyroidism, unspecified Status: Acute Assessment and Plan: -TSH WNL -Continued home meds DS: Summary Hospital Course Reason for hospitalization: 75 yo male w/ hx of COPD, HTN, hypothyroid, anxiety, presented to the hospital for increasing sob and was subsequently admitted for COPD exacerbation. Please see HPI for further details. Hospital Course: Please see above for details of hospital course. Status at Discharge Cognitive/behavioral status at discharge: stable Functional status at discharge: independent ambulation Overall status at discharge: patient is progressing back to baseline Time Spent with Patient Time attestation: Total time spent providing and/or coordinating discharge services: 35 Time spent: Greater than 30 minutes Exam Narrative: General: No acute distress, non toxic appearing Eyes: PERRL, no scleral icterus, EOMI HEENT: NCAT, external ears normal, MMM, normal pharynx Respiratory: No respiratory distress, Lungs CTA bilaterally, no wheezing Cardiovascular: RRR, no murmur Abdominal: Soft, nontender, non distended, no rebound or guarding Musculoskeletal: Moves all 4 extremities, no edema Neurological: A/Ox3, speech normal, no facial asymmetry Skin: Warm, dry, no rashes Psychiatric: Normal affect, normal mood DS: Data Data Completed and Pending Labs on day of discharge: Labs from last 24 hours 05/08/21 05/08/21 05/08/21 06:01 06:01 06:01 WBC RBC Hgb Hct MCV MCH MCHC RDW Plt Count MPV Immature Gran % (Auto) Neut % (Auto) Lymph % (Auto) [place] % (Auto) Eos % (Auto) Baso % (Auto) Lymph # (Auto) [place] # (Auto) Eos # (Auto) Baso # (Auto) Abs Immat Gran (auto) Absolute Neuts (auto) Absolute Nucleated RBC Nucleated RBC % Sodium 133 L Potassium 3.4 Chloride 99 Carbon Dioxide 28 Anion Gap 6 L BUN 12 Creatinine 0.80 Estim Creat Clear Calc 86 Estimated GFR > 60 Glucose 194 H Hemoglobin A1c 5.3 Calcium 9.4 Total Bilirubin 0
== END 2021-05-08 12:43 | disposition home or self-care (01) ==
LOC: ANHED 01:12 → ANH3MEDSUR 03:19
PROVIDERS: Physician Assistant; Admitting Provider Internal Medicine; Emergency Provider Emergency Medicine; PCP Internal Medicine; Visit Provider Internal Medicine
DX: J44.1 Chronic obstructive pulmonary disease with (acute) exacerbation (principal); R06.02 Shortness of breath; F41.9 Anxiety disorder, unspecified; J44.9 Chronic obstructive pulmonary disease, unspecified; I10 Essential (primary) hypertension; E03.9 Hypothyroidism, unspecified; Z87.891 Personal history of nicotine dependence; Z79.899 Other long term (current) drug therapy
CPT/HCPCS: 36415; 36600; 71045; 80053; 81003; 83036; 83605; 83880; 84443; 84484; 85025; 87040; 93005; 94640; 96374; 96376; 99285; A9270; G0378; J2930; J7512

== ENCOUNTER 2021-11-20 11:58 | Outpatient (CLI) | payer MEDICARE, SELFPAY ==
--- NOTE | ~2021-11-20 | MR_ITS ---
EXAMINATION: MR brain/brain stem wo/w con DATE: 11/20/2021 12:47 INDICATION: Syncope. TECHNIQUE: Magnetic resonance imaging (MRI) of the brain and brainstem was performed without and with 20 mL MultiHance intravenous contrast. COMPARISON: Head CT 12/26/2004 FINDINGS: There are scattered areas of nonspecific increased T2-weighted signal intensity in the cere bral white matter and najma. There is no intracranial hemorrhage, acute infarction, or abnormal intrac ranial mass lesion. The ventricles are normal in size. The mastoid air cells are normal. There is mil d mucosal thickening in the paranasal sinuses. The orbits are normal. IMPRESSION: 1. Mild nonspecific cerebral white matter disease and pontine disease, which likely represents chroni c small vessel ischemic disease. Reviewed, dictated and finalized at location B. IMPRESSION: 1. Mild nonspecific cerebral white matter disease and pontine disease, which rell gunderson represents chronic small vessel ischemic disease.
[2021-11-20 12:27] LABS: Estimated Glomerular Filt Rate > 60
== END 2021-11-20 11:59 | disposition home or self-care (01) ==
PROVIDERS: PCP Internal Medicine; Visit Provider Nurse Practitioner
DX: R55 Syncope and collapse (principal); R93.0 Abnormal findings on diagnostic imaging of skull and head, not elsewhere classified
CPT/HCPCS: 70553; A9577

== ENCOUNTER 2021-12-19 09:43 | Outpatient (CLI) | payer MEDICARE, SELFPAY ==
--- NOTE | 2021-12-19 09:49 | ECHO_ITS ---
Patient Info Name: Fanny Hopson Age: 76 years : 1945 Gender: Male Ht: 70 in Wt: 230 lbs BSA: 2.30 m2 HR: 68 bpm BP: 158 / 89 mmHg Technical Quality: Good Exam Date: 12/19/2021 10:20 AM Exam Location: [facility] Patient Status: Outpatient Admit Date: 12/19/2021 Staff Ordering Physician: Constance Shabazz NP Instrument Repair Specialist: Jeanette Oneal RDCS Attending Provider: Constance Shabazz NP Referring Physician: Harika BROWN; Exam Type: CA echo doppler color flow Study Info Indications R55 - Syncope and collapse Complete two-dimensional, color flow and Doppler transthoracic echocardiogram is performed. Summary 1. Complete two-dimensional, color flow and Doppler transthoracic echocardiogram is performed. 2. Left ventricular chamber dimension is normal. 3. Left ventricular systolic function is normal, estimated at 60-65%. 4. The left ventricular diastolic function is grade II diastolic dysfunction. 5. E/e' 11 is mildly elevated. 6. Global longitudinal strain is abnormal at -15.7%. 7. Left atrial chamber dimension is mildly enlarged. 8. There is mild aortic valve sclerosis. 9. The mitral valve has mildly calcified annulus. 10. There is trace tricuspid valve regurgitation. 11. No pulmonary hypertension, estimated pulmonary arterial systolic pressure is 32 mmHg. Left Ventricle E/e' 11 is mildly elevated. Global longitudinal strain is abnormal at -15.7%. Left ventricular chamber dimension is normal. Left ventricular systolic function is normal, estimated at 60-65%. The left ventricular diastolic function is grade II diastolic dysfunction. Right Ventricle Right ventricular systolic function is normal and with normal TAPSE 2.7 cm. Right ventricular chamber dimension is normal. Left Atria Left atrial chamber dimension is mildly enlarged. Right Atria Right atrial chamber dimension is normal. Aortic Valve The aortic valve is trileaflet. There is mild aortic valve sclerosis. There is no aortic valve stenosis. There is no aortic valve regurgitation. Pulmonic Valve There is no pulmonic regurgitation. Mitral Valve The mitral valve has mildly calcified annulus. There is no mitral valve stenosis. There is no mitral valve regurgitation. Tricuspid Valve There is trace tricuspid valve regurgitation. No pulmonary hypertension, estimated pulmonary arterial systolic pressure is 32 mmHg. Pericardium/Pleural There is no pericardial effusion. Inferior Vena Cava Normal inferior vena cava with >50% collapse upon inspiration consistent with normal right atrial pressure, 5 mmHg. Aorta The aortic root size at the sinus of Valsalva is normal. Left Ventricular Outflow Tract Name Value Normal LVOT 2D LVOT Diameter 2.1 cm LVOT Doppler LVOT Peak Gradient 4 mmHg LVOT Mean Gradient 2 mmHg LVOT VTI 27 cm LVOT VTI/AV VTI Ratio 0.9 LVOT Stroke Volume 95 ml LVOT CO 5.3 l/min LVOT CI
== END 2021-12-19 09:44 | disposition home or self-care (01) ==
PROVIDERS: PCP Internal Medicine; Visit Provider Nurse Practitioner
DX: R55 Syncope and collapse (principal)
CPT/HCPCS: 93306

== ENCOUNTER 2022-02-26 03:03 | Inpatient (IN) | payer MEDICARE, SELFPAY ==
[2022-02-26] VITALS (35 sets, daily range): BP systolic 112–150; BP diastolic 65–91; PULSE 63–86; RESP 17–31; TEMP 36.2–36.5; O2SAT 91–100; BMI 33.7
--- NOTE | ~2022-02-26 | XR_ITS ---
EXAMINATION: XR chest 1V portable DATE: 02/26/2022 03:35 INDICATION: Respiratory distress. TECHNIQUE: A single frontal view of the chest was obtained on 2 radiographs. COMPARISON: Chest single view 05/07/2021, chest CT 07/19/2019 FINDINGS: A calcified left lung nodule and calcified left hilar lymph nodes are consistent with old g ranulomatous disease. No pleural effusion or pneumothorax. The heart size is normal. IMPRESSION: 1. No acute cardiopulmonary disease. Reviewed, dictated and finalized at location A.
--- NOTE | 2022-02-26 03:04 | ECG_ITS ---
Measurements Intervals Makinen Rate: 85 P: 60 NM: 165 QRS: 38 QRSD: 110 T: 35 QT: 389 QTc: 464 Interpretive Statements SINUS RHYTHM VENTRICULAR PREMATURE COMPLEX CANNOT RULE OUT SEPTAL INFARCT, AGE INDETERMINATE BASELINE WANDER- V4-V5 ABNORMAL ECG NO PREVIOUS ECG AVAILABLE FOR COMPARISON Electronically Signed On 02-26-2022 7:50:08 CDT by George Molina D.O.
--- NOTE | 2022-02-26 03:07 | ED.SOB ---
HPI - SOB/Dyspnea General Chief Complaint: Shortness of Breath/Dyspnea Stated Complaint: SOB Source: EMS, RN notes reviewed and old records reviewed Mode of arrival: EMS Limitations: clinical condition History of Present Illness HPI Narrative: This is a 76 year old male who presents via EMS for respiratory distress. EMS states patient has been having shortness of breath for 2 days that worsened tonight. EMS states patient was found with audible wheezing, 75% on oxygen saturation on his home oxygen, and in respiratory distress slumped over. EMS started patient on CPAP and his oxygen improved to 96 %. He was also given Decadron 10 mg by EMS. Patient tried albuterol nebulizer prior to EMS but he did not have any relief. Patient denies chest pain. He states he started to have a chest congestion and phlegm. He called his PCP to get a z russ but he states he needed to get covid test and be seen in clinic first. He reports this happens to him once a year around to same time of year. Related Data Home Medications Medication Instructions Recorded Confirmed fluticasone propionate 50 2 spray intranasal DAILY 01/23/21 01/20/22 mcg/actuation nasal spray,suspension (Flonase Allergy Relief) Allergies Allergy/AdvReac Type Severity Reaction Status Date / Time No Known Allergies Allergy Verified 01/20/22 09:24 Review of Systems Review of Systems: All systems reviewed & are unremarkable except as noted in HPI and below Constitutional: Constitutional: Denies chills, Denies fatigue and Denies fever(s) ENT: Reports nasal congestion Cardiovascular: Cardiovascular: Denies chest pain and Denies radiating jaw, neck or arm pain Respiratory: Respiratory: Reports chest congestion, Reports cough, Reports dyspnea and Reports wheezing Gastrointestinal: Gastrointestinal: Denies abdominal pain, Denies nausea and Denies vomiting [facility] Past Medical History Medical History Alcoholism Anxiety Cataracts, bilateral COPD (chronic obstructive pulmonary disease) Dupuytren's contracture B/L. Right s/p release Elevated liver enzymes Elevated PSA Essential tremor History of rectal polyps Hyperglycemia Hypertension Hypothyroid Wears glasses Surgical History Surgical History No history of previous surgery Family History Family History Mother Alzheimer disease Congestive heart failure Father COPD (chronic obstructive pulmonary disease) Smoking Sibling Breast cancer Social History Social History Social History: Patient lives at home alone with his dog who is elderly/blind. He does not wish to designate a surrogate MDM as he has no living family in the area. He wishes to be a Full code. His PCP is Dr. Mckinley Smoking packs per day: 3 Smoking cigarettes per day: 60.0 Years smoked: 35 Smoking pack-years: 105.00 Smoking status: Former smoker Second hand tobacco smoke exposure: Yes Additional smoking assessment comments: Smoked 2ppd for roughly 30 years Alcohol intake: current Drinks per week: 50 Alcohol use details: Last drink 2 days prior to this admission Substance use: never Substance use type: does not use Other substance usage details: timi luna Gender identity (if verbalized by the patient): Male Spiritual care concerns: No Exam Const: General: alert and ill appearing; No diaphoretic Nutritional Appearance: well nourished Eyes: Pupils: Equal, round and reactive pupils present EOM: EOMs intact bilaterally Chest: Chest palpation & inspection: normal inspection of the chest Resp: Effort & Inspection: tachypneic Auscultation: wheezes expiratory wheezes, inspiratory wheezes and throughout Cardio: Rate: regular rate Rhythm: regular rhythm Heart sounds
[2022-02-26] MEDS: IPRATROPIUM BR 0.02% INH SOLN 0.5 MG/2.5 ML VIAL 1 MG INHALATION (03:15)
[2022-02-26] MEDS: ALBUTEROL SULFATE NEB 2.5 MG/3 ML INH 10 MG INHALATION (03:15)
[2022-02-26 03:18] LABS: Basophils Absolute Auto 0.1 K/mm3 (0.0-0.1); Basophils Percent Auto 1.4 % (0.2-1.2); Eosinophils Percent Auto 13.1 % (0-4.4); Hematocrit 46.8 % (42.0-52.0); Hemoglobin 15.8 g/dL (14.0-18.0); Immature Granulocyte Absolute 0.04 K/mm3 (0.00-0.031); Immature Granulocyte Percent A 0.5 % (0-0.5); Lymphocytes Absolute Auto 1.87 K/mm3 (0.9-3.2); Lymphocytes Percent Auto 23.8 % (18.3-44.2); Mean Corpuscular HGB Conc 33.8 g/dl (32-36); Mean Corpuscular Volume 100.6 fl (80-100); Mean Platelet Volume 9.5 fl (7.4-10.4); Monocytes Percent Auto 12.1 % (2.6-8.5); Neutrophils Absolute Auto 3.9 K/mm3 (1.3-6.7); Neutrophils Percent Auto 49.1 % (45.5-73.1); Platelet Count Result 221 k/mm3 (150-375); Red Blood Count 4.65 M/mm3 (4.6-6.20); Red Cell Distribution Width 13.4 % (11.5-14.5); White Blood Count 7.9 K/mm3 (4.5-10.0)
[2022-02-26 03:24] LABS: Alveolar/Arterial O2 Gradient 97.1 mmHg; Base Excess ABG -2.2 mEq/l (+/-2.0); Carboxyhemoglobin 0.3 % THb (0-2.0); Fractional Inspired Oxygen 50 %; HCO3 ABG 23.9 mEq/l (22.0-26.0); Methemoglobin ABG 0.4 %THb (0-1.5); Oxygen Content ABG 22.9 %vol (16.0-22.0); Oxygen Saturation ABG 99.3 % (95.0-100.0); Oxyhemoglobin 98.2 % THb (90.0-100.0); PCO2 ABG 45.9 mmHg (35.0-45.0); PO2 ABG 207.8 mmHg (80.0-100.0); PO2 FiO2 Ratio Arterial Blood 4.16 %; Reduced Hemoglobin 1.1 %THb (0-5.0); Total Hemoglobin 16.3 g/dL (12.0-18.0); pH ABG 7.335 (7.350-7.450)
[2022-02-26 03:25] LABS: Device NON-INVASIVE VENT; Modified Allen's Test Pass; Non-Invasive Expiratory Pressure 6 CMH2O; Non-Invasive Inspiratory Pressure 12 CMH2O; Non-Invasive Vent Rate 20 /MIN; Site Drawn RIGHT BRACHIAL
[2022-02-26 03:28] LABS: INR 1.1; Prothrombin Time 14.1 Seconds (11.1-14.7)
[2022-02-26 03:29] LABS: Partial Thromboplastin Time 28.2 SECONDS (22.3-36.8)
[2022-02-26 03:35] LABS: Alanine Aminotransferase 42 U/L (6-50); Albumin Level 4.5 g/dL (3.5-5.1); Alkaline Phosphatase 64 U/L (38-126); Anion Gap 14 mmol/L (8-16); Aspartate Amino Transferase 57 U/L (17-59); Bilirubin,Total 0.6 mg/dL (0.2-1.3); Blood Urea Nitrogen 10 mg/dL (9-20); Calcium 9.3 mg/dL (8.4-10.2); Carbon Dioxide 24 mmol/L (22-30); Chloride 101 mmol/L (98-107); Estimated CRCL calculation 67 ml/min; Estimated Glomerular Filt Rate > 60; Glucose 169 mg/dL (65-110); Potassium 3.6 mmol/L (3.4-5.0); Sodium 139 mmol/L (137-145)
[2022-02-26 03:48] LABS: NT Pro B Type Natriuretic Pept 384 pg/mL (5-100); Troponin I < 0.012 ng/mL (0.000-0.034)
[2022-02-26 03:55] LABS: SARS-CoV-2 RNA PCR Negative
--- NOTE | 2022-02-26 04:30 | PC.NURSE ---
EDP stated no blood cultures needed prior to antibiotics.
[2022-02-26] MEDS: methylPREDNISolone SOD SUCC 125 MG VIAL 60 MG IV PUSH ×4 (05:59→23:18)
--- NOTE | 2022-02-26 06:14 | ADMGEN ---
This patient, Fanny Hopson Jr., was admitted to IMU Room 213-01. Patient/family oriented to hospital policies and general routines including ID bracelet, bed and alarms, visiting hours, pain management, procedures, bathroom and other care routines, personal items, smoking policy, room service/diet, and visiting hours. Information on how to activate the Rapid Response Team has been discussed. Patient/Family are encouraged to report perceived risks to care and to ask questions if they do not understand what they are told or what they should do.
[2022-02-26] MEDS: ALBUTEROL SULFATE NEB 2.5 MG/3 ML INH 5 MG INHALATION ×3 (07:46→20:23)
[2022-02-26] MEDS: IPRATROPIUM BR 0.02% INH SOLN 0.5 MG/2.5 ML VIAL INHALATION ×3 (07:46→20:23)
[2022-02-26 11:48] LABS: Alveolar/Arterial O2 Gradient 73.7 mmHg; Fractional Inspired Oxygen 30 %; HCO3 ABG 22.3 mEq/l (22.0-26.0); Oxygen Content ABG 22.2 %vol (16.0-22.0); Oxygen Saturation ABG 97.8 % (95.0-100.0); PCO2 ABG 33.8 mmHg (35.0-45.0); PO2 ABG 100.5 mmHg (80.0-100.0); PO2 FiO2 Ratio Arterial Blood 3.35 %; Total Hemoglobin 16.2 g/dL (12.0-18.0); pH ABG 7.438 (7.350-7.450)
[2022-02-26 11:50] LABS: Device NON-INVASIVE VENT; Modified Allen's Test Pass; Non-Invasive Vent Rate 20 /MIN; Site Drawn LEFT RADIAL
[2022-02-26 11:51] LABS: Non-Invasive Expiratory Pressure 5 CMH2O; Non-Invasive Inspiratory Pressure 12 CMH2O
--- NOTE | 2022-02-26 15:33 | PM.IMHP ---
H&P: HPI History of Present Illness Date/Time: 02/26/22 15:33 Chief Complaint: SOB Narrative: 76 year old male who presents via EMS for respiratory distress. Pt has history of COPD. Pt been on BIPAP overnite. Pt has been coughing and wheezing. He is fully vaccinated x3 for covid.? Pt takes Trelogy for his COPD but ran out.? He is unable to afford it.? His COPD medications are managed by his PCP.? Pt does not smoke but does drink drinks 5-6 beers every day.? Review of Systems Review of Systems: Cough wheeze SOB no fevers or chest pain PMFSH Past Medical History Medical History Alcoholism Anxiety Cataracts, bilateral COPD (chronic obstructive pulmonary disease) Dupuytren's contracture B/L. Right s/p release Elevated liver enzymes Elevated PSA Essential tremor History of rectal polyps Hyperglycemia Hypertension Hypothyroid Wears glasses Surgical History Surgical History No history of previous surgery Family History Family History Mother Alzheimer disease Congestive heart failure Father COPD (chronic obstructive pulmonary disease) Smoking Sibling Breast cancer Social History Social History Social History: Patient lives at home alone with his dog who is elderly/blind. He does not wish to designate a surrogate MDM as he has no living family in the area. He wishes to be a Full code. His PCP is Dr. Mckinley Smoking packs per day: 1.5 Smoking cigarettes per day: 30.0 Years smoked: 40 Smoking pack-years: 60.00 Smoking status: Former smoker Tobacco type: cigarettes Second hand tobacco smoke exposure: No Additional smoking assessment comments: Smoked 2ppd for roughly 30 years Alcohol intake: current Drinks per week: 5 Alcohol use details: Last drink 2 days prior to this admission Substance use: never Substance use type: does not use Other substance usage details: timi luna Gender identity (if verbalized by the patient): Male Spiritual care concerns: No Meds Home Medications and Allergies Home Medications Medication Instructions Recorded Confirmed Type levothyroxine 100 mcg tablet 100 mcg PO DAILY #90 tabs 09/06/19 02/26/22 Rx albuterol sulfate 90 mcg/actuation 2 puff inhalation QID PRN Wheezing 12/11/20 02/26/22 Rx aerosol inhaler (Proventil HFA) #18 grams albuterol sulfate 2.5 mg/3 mL 2.5 mg (3 mL) inhalation Q4-6H PRN 01/02/21 02/26/22 Rx (0.083 %) solution for nebulization Shortness Of Breath #60 vials fluticasone propionate 50 2 spray intranasal DAILY 01/23/21 02/26/22 History mcg/actuation nasal spray,suspension (Flonase Allergy Relief) propranolol 80 mg tablet 80 mg PO BID #180 tabs 09/11/21 02/26/22 Rx doxepin 10 mg capsule 10 mg PO DAILY PRN insomnia #90 10/02/21 02/26/22 Rx caps escitalopram oxalate 20 mg tablet See Rx Instructions .Route 12/10/21 02/26/22 Rx .COMPLEX #90 tabs valsartan 320 See Rx Instructions .Route 12/10/21 02/26/22 Rx mg-hydrochlorothiazide 12.5 mg .COMPLEX #90 tabs tablet amlodipine 5 mg tablet See Rx Instructions .Route 01/28/22 02/26/22 Rx .COMPLEX #90 tabs umeclidinium 62.5 mcg-vilanterol 1 inh inhalation DAILY #60 ea 02/04/22 02/26/22 Rx 25 mcg/actuation powdr for inhalation (Anoro Ellipta) Allergies Allergy/AdvReac Type Severity Reaction Status Date / Time No Known Allergies Allergy Verified 01/20/22 09:24 Vital Signs Vital Signs - 24 hr 02/26/22 02:54 02/26/22 03:04 02/26/22 03:04 Temperature 36.4 C Pulse Rate 81 81 Respiratory Rate 30 H Blood Pressure 150/91 H Pulse Oximetry 100 100 Oxygen Delivery BiPAP BiPAP Oxygen Flow Rate Fraction of Inspired Oxygen 50 50 02/26/22 03:02 02/26/22 03:15 02/26/22 03:16 [place]
[2022-02-26] MEDS: PROPRANOLOL HCL 40 MG TABLET 80 MG PO (17:14)
[2022-02-27] VITALS (19 sets, daily range): BP systolic 121–160; BP diastolic 59–76; PULSE 54–67; RESP 16–20; TEMP 36.2–36.7; O2SAT 93–99
[2022-02-27] MEDS: IPRATROPIUM BR 0.02% INH SOLN 0.5 MG/2.5 ML VIAL INHALATION ×4 (02:49→20:32)
[2022-02-27] MEDS: ALBUTEROL SULFATE NEB 2.5 MG/3 ML INH 5 MG INHALATION ×4 (02:49→20:32)
[2022-02-27 04:53] LABS: Basophils Percent Auto 0.2 % (0.2-1.2); Hematocrit 42.1 % (42.0-52.0); Hemoglobin 14.3 g/dL (14.0-18.0); Immature Granulocyte Absolute 0.08 K/mm3 (0.00-0.031); Immature Granulocyte Percent A 0.8 % (0-0.5); Lymphocytes Absolute Auto 0.96 K/mm3 (0.9-3.2); Lymphocytes Percent Auto 9.2 % (18.3-44.2); Mean Corpuscular Volume 100.2 fl (80-100); Mean Platelet Volume 9.8 fl (7.4-10.4); Monocytes Absolute Auto 0.5 K/mm3 (0.1-0.6); Neutrophils Absolute Auto 8.9 K/mm3 (1.3-6.7); Neutrophils Percent Auto 84.8 % (45.5-73.1); Platelet Count Result 190 k/mm3 (150-375); Red Cell Distribution Width 13.3 % (11.5-14.5); White Blood Count 10.5 K/mm3 (4.5-10.0)
[2022-02-27 05:06] LABS: Alanine Aminotransferase 32 U/L (6-50); Albumin Level 3.6 g/dL (3.5-5.1); Alkaline Phosphatase 49 U/L (38-126); Anion Gap 5 mmol/L (8-16); Aspartate Amino Transferase 25 U/L (17-59); Bilirubin,Total 0.5 mg/dL (0.2-1.3); Blood Urea Nitrogen 13 mg/dL (9-20); Calcium 8.8 mg/dL (8.4-10.2); Carbon Dioxide 26 mmol/L (22-30); Chloride 103 mmol/L (98-107); Estimated CRCL calculation 74 ml/min; Estimated Glomerular Filt Rate > 60; Glucose 199 mg/dL (65-110); Potassium 3.8 mmol/L (3.4-5.0); Sodium 134 mmol/L (137-145)
[2022-02-27] MEDS: methylPREDNISolone SOD SUCC 125 MG VIAL 60 MG IV PUSH ×3 (05:54→17:11)
[2022-02-27] MEDS: LEVOTHYROXINE SODIUM 100 MCG TABLET PO (05:54)
[2022-02-27] MEDS: VALSARTAN 160 MG TABLET 320 MG PO (09:46)
[2022-02-27] MEDS: PROPRANOLOL HCL 40 MG TABLET 80 MG PO ×2 (09:46→17:11)
[2022-02-27] MEDS: ESCITALOPRAM OXALATE 10 MG TABLET PO (09:48)
[2022-02-27] MEDS: amLODIPine BESYLATE 5 MG TABLET PO (09:48)
[2022-02-27] MEDS: ENOXAPARIN 40 MG/0.4 ML SYRINGE SUB-Q (09:49)
[2022-02-27] MEDS: FLUTICASONE PROPIONATE 0.05% NA SPR 16 GM BTL (*BKC) 2 SPRAY NASAL (09:49)
[2022-02-27] MEDS: hydroCHLOROthiazide 12.5 MG CAPSULE PO (09:49)
[2022-02-27] MEDS: UMECLIDINIUM/VILANTEROL 62.5-25 MCG ELLIPTA 1 PUFF INHALATION (11:52)
[2022-02-27] MEDS: DOXEPIN HCL 10 MG CAPSULE PO (13:47)
--- NOTE | 2022-02-27 18:04 | PM.IMPN ---
Progress Note: A&P Assessment and Plan (1) Acute respiratory failure with hypoxia and hypercarbia: Code(s): J96.01 - Acute respiratory failure with hypoxia; J96.02 - Acute respiratory failure with hypercapnia Status: Acute (2) COPD (chronic obstructive pulmonary disease): Qualifiers: COPD type: chronic bronchitis Chronic bronchitis type: simple Qualified Code(s): J41.0 - Simple chronic bronchitis Code(s): J44.9 - Chronic obstructive pulmonary disease, unspecified Status: Acute (3) Hypothyroid: Qualifiers: Hypothyroidism type: unspecified Qualified Code(s): E03.9 - Hypothyroidism, unspecified Code(s): E03.9 - Hypothyroidism, unspecified Status: Acute (4) Hypertension: Qualifiers: Hypertension type: essential hypertension Qualified Code(s): I10 - Essential (primary) hypertension Code(s): I10 - Essential (primary) hypertension Status: Acute (5) Alcoholism: Code(s): F10.20 - Alcohol dependence, uncomplicated Status: Acute (6) Anxiety: Code(s): F41.9 - Anxiety disorder, unspecified Status: Acute Plan #Acute on chronic respiratory failure initially was and distress and placed on BiPAP now tapered off. Off oxygen as well # chronic Alcoholism :Watch for DTS Pt drinks 5-6 beers per day # Anxiety:Pt is on propranolol # COPD (chronic obstructive pulmonary disease) excerbation Restart Nebuliser treatments Add steroids Add iv Rocephin and zithromax switch solumedol to po prednisone # Hypertension: Restart BP medications # Hypothyroidism: Restart thyroid medications # Hyperglycemia: Monitor Sugars in the hospital # DVT prop: Lovenox ordered Subjective Date/time seen: 02/27/22 18:04 Interval history: feeling much better. Breathing has improved he is off BiPAP and also oxygen since yesterday evening. Review of Systems Review of Systems: All systems reviewed & are unremarkable except as noted in HPI and below Exam Narrative: GENERAL: The patient is well developed, not in acute distress HEENT: Nonicteric sclerae, PERRLA, EOMI. Oropharynx clear. Moist mucous membranes. Conjunctivae appear well perfused. CHEST: Chest wall is nontender. HEART: Regular rate and rhythm without murmur, rubs, or gallops LUNGS: Coarse breath sound bilaterally. mild wheezes and expiratory. no respiratory distress ABDOMEN: Soft, positive bowel sounds, non-tender, no organomegaly. SKIN: No rash, no excessive bruising, petechiae, or purpura. NEUROLOGIC: Cranial nerves II-XII intact, alert and oriented x 3, no gross motor deficits EXTREMITIES: no edema, cyanosis or clubbing Objective Data Vital Signs Vital Signs: Vital Signs - 24 hr 02/26/22 20:26 02/26/22 20:27 02/26/22 20:38 Temperature Pulse Rate 63 69 Respiratory Rate 18 18 Blood Pressure Pulse Oximetry 91 Oxygen Delivery Room Air Fraction of Inspired Oxygen 02/26/22 20:00 02/26/22 20:00 02/26/22 20:00 Temperature 97.5 F L Pulse Rate 63 69 74 Respiratory Rate 20 18 Blood Pressure 130/65 Pulse Oximetry 96 91 Oxygen Delivery Room Air Fraction of Inspired Oxygen 02/26/22 22:00 02/27/22 00:00 02/27/22 00:00 Temperature 97.7 F Pulse Rate 67 64 65 Respiratory Rate 18 Blood Pressure 122/63 Pulse Oximetry 99 Oxygen Delivery Fraction of Inspired Oxygen 02/27/22 00:00 02/27/22 02:49 02/27/22 03:01 Temperature Pulse Rate 65 65 67 Respiratory Rate 18 16 16 Blood Pressure Pulse Oximetry 99 Oxygen Delivery Room Air Fraction of Inspired Oxygen 02/27/22 02:00 02/27/22 04:00 02/27/22 04:00 Temperature Pulse Rate 58 L 59 L 59 L Respiratory Rate 16 Blood Pressure Pulse Oximetry 99 Oxygen Delivery Room Air Fraction of Inspired Oxygen 02/27/22 05:59 02/27/22 04:00 02/27/22 08:00 Temperature 97.9 F 97.2 F L Pulse Rate 58 L 57 L 60 Respiratory Rate 18 18 [place]
[2022-02-28 02:21] VITALS: PULSE 61; RESP 16
[2022-02-28] MEDS: IPRATROPIUM BR 0.02% INH SOLN 0.5 MG/2.5 ML VIAL INHALATION ×2 (02:21→08:04)
[2022-02-28] MEDS: ALBUTEROL SULFATE NEB 2.5 MG/3 ML INH 5 MG INHALATION ×2 (02:21→08:04)
[2022-02-28 02:34] VITALS: PULSE 58; RESP 16
[2022-02-28 05:35] VITALS: BP 134/70; PULSE 51; RESP 18; TEMP 36.6; O2SAT 94
[2022-02-28] MEDS: LEVOTHYROXINE SODIUM 100 MCG TABLET PO (06:03)
[2022-02-28 07:15] LABS: Basophils Percent Auto 0.1 % (0.2-1.2); Hematocrit 43.1 % (42.0-52.0); Hemoglobin 14.5 g/dL (14.0-18.0); Immature Granulocyte Absolute 0.13 K/mm3 (0.00-0.031); Immature Granulocyte Percent A 1.1 % (0-0.5); Lymphocytes Absolute Auto 0.97 K/mm3 (0.9-3.2); Lymphocytes Percent Auto 8.5 % (18.3-44.2); Mean Corpuscular HGB Conc 33.6 g/dl (32-36); Mean Corpuscular Hemoglobin 33.7 pg (26-34); Mean Corpuscular Volume 100.2 fl (80-100); Mean Platelet Volume 10.1 fl (7.4-10.4); Monocytes Absolute Auto 0.8 K/mm3 (0.1-0.6); Monocytes Percent Auto 6.9 % (2.6-8.5); Neutrophils Absolute Auto 9.6 K/mm3 (1.3-6.7); Neutrophils Percent Auto 83.4 % (45.5-73.1); Platelet Count Result 196 k/mm3 (150-375); White Blood Count 11.5 K/mm3 (4.5-10.0)
[2022-02-28 07:40] LABS: Alanine Aminotransferase 28 U/L (6-50); Albumin Level 3.6 g/dL (3.5-5.1); Alkaline Phosphatase 49 U/L (38-126); Anion Gap 6 mmol/L (8-16); Aspartate Amino Transferase 23 U/L (17-59); Bilirubin,Total 0.5 mg/dL (0.2-1.3); Blood Urea Nitrogen 13 mg/dL (9-20); Carbon Dioxide 29 mmol/L (22-30); Chloride 101 mmol/L (98-107); Estimated CRCL calculation 74 ml/min; Estimated Glomerular Filt Rate > 60; Glucose 169 mg/dL (65-110); Magnesium 2.3 mg/dL (1.6-2.3); Potassium 3.4 mmol/L (3.4-5.0); Sodium 136 mmol/L (137-145)
[2022-02-28 08:05] VITALS: PULSE 61; RESP 16
[2022-02-28 08:16] VITALS: PULSE 63; RESP 16
[2022-02-28] MEDS: ENOXAPARIN 40 MG/0.4 ML SYRINGE SUB-Q (08:45)
[2022-02-28] MEDS: PROPRANOLOL HCL 40 MG TABLET 80 MG PO (08:45)
[2022-02-28] MEDS: amLODIPine BESYLATE 5 MG TABLET PO (08:45)
[2022-02-28] MEDS: predniSONE 20 MG TABLET 40 MG PO (08:45)
[2022-02-28] MEDS: hydroCHLOROthiazide 12.5 MG CAPSULE PO (08:45)
[2022-02-28] MEDS: VALSARTAN 160 MG TABLET 320 MG PO (08:45)
[2022-02-28] MEDS: ESCITALOPRAM OXALATE 10 MG TABLET PO (08:46)
[2022-02-28] MEDS: FLUTICASONE PROPIONATE 0.05% NA SPR 16 GM BTL (*BKC) 2 SPRAY NASAL (08:46)
--- NOTE | 2022-02-28 11:58 | PM.DS ---
DS: Admitting Diagnosis Discharge Date 02/28/2022 Admitting Diagnosis Shortness of breath DS: Discharge Diagnosis Discharge Diagnosis (1) Acute respiratory failure with hypoxia and hypercarbia: Code(s): J96.01 - Acute respiratory failure with hypoxia; J96.02 - Acute respiratory failure with hypercapnia Status: Acute (2) COPD (chronic obstructive pulmonary disease): Qualifiers: COPD type: chronic bronchitis Chronic bronchitis type: simple Qualified Code(s): J41.0 - Simple chronic bronchitis Code(s): J44.9 - Chronic obstructive pulmonary disease, unspecified Status: Acute (3) Hypothyroid: Qualifiers: Hypothyroidism type: unspecified Qualified Code(s): E03.9 - Hypothyroidism, unspecified Code(s): E03.9 - Hypothyroidism, unspecified Status: Acute (4) Hypertension: Qualifiers: Hypertension type: essential hypertension Qualified Code(s): I10 - Essential (primary) hypertension Code(s): I10 - Essential (primary) hypertension Status: Acute (5) Alcoholism: Code(s): F10.20 - Alcohol dependence, uncomplicated Status: Acute (6) Anxiety: Code(s): F41.9 - Anxiety disorder, unspecified Status: Acute DS: Summary Hospital Course Hospital Course: # Acute on chronic respiratory failure initially was and distress and placed on BiPAP now tapered off. Off oxygen as well. Patient continued to improve with treatment for COPD exacerbation. Will continue steroid taper and follow-up with PCP # chronic Alcoholism :Watch for DTS Pt drinks 5-6 beers per day # Anxiety:Pt is on propranolol # COPD (chronic obstructive pulmonary disease) excerbation started on steroid and Rocephin azithromycin. Steroids switched to oral prednisone which will be tapered over next few days Restart Nebuliser treatments # Hypertension: Restart BP medications # Hypothyroidism: Restart thyroid medications # Hyperglycemia: Monitor Sugars in the hospital # DVT prop: Lovenox ordered Time Spent with Patient Time attestation: Total time spent providing and/or coordinating discharge services: 40 minutes Exam Narrative: GENERAL: The patient is well developed, not in acute distress HEENT: Nonicteric sclerae, PERRLA, EOMI. Oropharynx clear. Moist mucous membranes. Conjunctivae appear well perfused. CHEST: Chest wall is nontender. HEART: Regular rate and rhythm without murmur, rubs, or gallops LUNGS: Coarse breath sound bilaterally. No wheezes or rales. No respiratory distress ABDOMEN: Soft, positive bowel sounds, non-tender, no organomegaly. SKIN: No rash, no excessive bruising, petechiae, or purpura. NEUROLOGIC: Cranial nerves II-XII intact, alert and oriented x 3, no gross motor deficits EXTREMITIES: no edema, cyanosis or clubbing DS: Data Data Completed and Pending Labs on day of discharge: Labs from last 24 hours 02/28/22 02/28/22 06:37 06:37 WBC 11.5 H RBC 4.30 L Hgb 14.5 Hct 43.1 MCV 100.2 H MCH 33.7 MCHC 33.6 RDW 13.0 Plt Count 196 MPV 10.1 Immature Gran % (Auto) 1.1 H Neut % (Auto) 83.4 H Lymph % (Auto) 8.5 L [place] % (Auto) 6.9 Eos % (Auto) 0.0 Baso % (Auto) 0.1 L Lymph # (Auto) 0.97 [place] # (Auto) 0.8 H Eos # (Auto) 0.0 Baso # (Auto) 0.0 Abs Immat Gran (auto) 0.13 H Absolute Neuts (auto) 9.6 H Absolute Nucleated RBC 0.0 Nucleated RBC % 0.0 Sodium 136 L Potassium 3.4 Chloride 101 Carbon Dioxide 29 Anion Gap 6 L BUN 13 Creatinine 0.90 Estim Creat Clear Calc 74 Estimated GFR > 60 Glucose 169 H Calcium 9.0 Magnesium 2.3 Total Bilirubin 0.5 AST 23 ALT 28 Alkaline Phosphatase 49 Total Protein 6.0 L Albumin 3.6 Imaging Radiologist's impression: ITS Impressions Chest X-Ray 02/26/22 06:40 IMPRESSION: 1. No acute cardiopulmonary disease. Discharge Plan Discharge Attending physician on discharge: Katharine Valdovinos
== END 2022-02-28 13:00 | disposition home or self-care (01) | DRG 189 ==
LOC: ANHED 04:33 → ANHIMU 05:08 → ANH3MEDSUR 02-27 16:04
PROVIDERS: Family Medicine; Admitting Provider Internal Medicine; Emergency Provider General Practice; PCP Internal Medicine; Visit Provider Internal Medicine
DX: J96.01 Acute respiratory failure with hypoxia (principal); J44.1 Chronic obstructive pulmonary disease with (acute) exacerbation; J96.02 Acute respiratory failure with hypercapnia; I10 Essential (primary) hypertension; E03.9 Hypothyroidism, unspecified; H26.9 Unspecified cataract; G25.0 Essential tremor; F10.20 Alcohol dependence, uncomplicated; T38.0X6A Underdosing of glucocorticoids and synthetic analogues, initial encounter; F41.9 Anxiety disorder, unspecified; Z20.822 Contact with and (suspected) exposure to COVID-19; Z86.010 Personal history of colon polyps; Z87.891 Personal history of nicotine dependence; Z99.81 Dependence on supplemental oxygen; Z91.120 Patient's intentional underdosing of medication regimen due to financial hardship
CPT/HCPCS: 36415; 36600; 71045; 80053; 82375; 82805; 83050; 83735; 83880; 84484; 85025; 85610; 85730; 93005; 94002; 94640; 99291; A9270; C9803; J0456; J0696; J1650; J2930; J7512; U0003; U0005

== ENCOUNTER 2022-04-08 02:03 | Emergency (ER) | payer MEDICARE, SELFPAY ==
--- NOTE | ~2022-04-08 | XR_ITS ---
EXAMINATION: XR chest 1V portable DATE: 04/08/2022 02:38 INDICATION: Cough. TECHNIQUE: A single frontal view of the chest was obtained. COMPARISON: Chest single view 02/26/2022, chest CT 07/19/2019 FINDINGS: A calcified left lung nodule and calcified left hilar lymph nodes are consistent with old g ranulomatous disease. No pleural effusion or pneumothorax. The heart size is normal. IMPRESSION: 1. No acute cardiopulmonary disease. Reviewed, dictated and finalized at location A.
[2022-04-08 02:04] VITALS: BP 133/79; PULSE 74; RESP 20; TEMP 36.6; O2SAT 95
[2022-04-08 02:10] VITALS: O2SAT 95
--- NOTE | 2022-04-08 02:13 | ECG_ITS ---
Measurements Intervals [place] Rate: 82 P: 32 [place]: 171 QRS: 17 QRSD: 98 T: 42 QT: 387 QTc: 453 Interpretive Statements SINUS RHYTHM VENTRICULAR PREMATURE COMPLEX CANNOT RULE OUT SEPTAL INFARCT, AGE INDETERMINATE ABNORMAL ECG COMPARED TO ECG 05/07/2021 00:35:51 NO SIGNIFICANT CHANGES Electronically Signed On 04-08-2022 6:37:40 CDT by George Molina D.O.
[2022-04-08 02:15] VITALS: PULSE 73; RESP 22; RESP 99; O2SAT 99
[2022-04-08] MEDS: methylPREDNISolone SOD SUCC 125 MG VIAL 40 MG IV PUSH (02:18)
[2022-04-08] MEDS: MAGNESIUM SULF 2 GM/WATER 50ML 2 GM/50 ML BAG IVPB (02:19)
[2022-04-08] MEDS: IPRATROPIUM BR 0.02% INH SOLN 0.5 MG/2.5 ML VIAL 1 MG INHALATION (02:24)
[2022-04-08] MEDS: ALBUTEROL SULFATE NEB 2.5 MG/3 ML INH 15 MG INHALATION (02:25)
[2022-04-08 02:52] LABS: Basophils Absolute Auto 0.1 K/mm3 (0.0-0.1); Basophils Percent Auto 1.3 % (0.2-1.2); Eosinophils Absolute Auto 0.6 K/mm3 (0-0.3); Eosinophils Percent Auto 9.9 % (0-4.4); Hematocrit 48.9 % (42.0-52.0); Hemoglobin 16.7 g/dL (14.0-18.0); Immature Granulocyte Absolute 0.02 K/mm3 (0.00-0.031); Immature Granulocyte Percent A 0.3 % (0-0.5); Lymphocytes Absolute Auto 1.86 K/mm3 (0.9-3.2); Lymphocytes Percent Auto 31.1 % (18.3-44.2); Mean Corpuscular HGB Conc 34.2 g/dl (32-36); Mean Corpuscular Hemoglobin 33.9 pg (26-34); Mean Corpuscular Volume 99.2 fl (80-100); Mean Platelet Volume 9.7 fl (7.4-10.4); Monocytes Absolute Auto 0.9 K/mm3 (0.1-0.6); Monocytes Percent Auto 15.6 % (2.6-8.5); Neutrophils Absolute Auto 2.5 K/mm3 (1.3-6.7); Neutrophils Percent Auto 41.8 % (45.5-73.1); Platelet Count Result 238 k/mm3 (150-375); Red Blood Count 4.93 M/mm3 (4.6-6.20); Red Cell Distribution Width 12.8 % (11.5-14.5)
[2022-04-08 02:56] LABS: SARS-CoV-2 RNA PCR Negative
[2022-04-08 03:02] LABS: Anion Gap 12 mmol/L (8-16); Blood Urea Nitrogen 12 mg/dL (9-20); Calcium 9.3 mg/dL (8.4-10.2); Carbon Dioxide 27 mmol/L (22-30); Chloride 98 mmol/L (98-107); Estimated Glomerular Filt Rate > 60; Glucose 111 mg/dL (65-110); Potassium 3.9 mmol/L (3.4-5.0); Sodium 137 mmol/L (137-145)
--- NOTE | 2022-04-08 03:56 | ED.SOB ---
HPI - SOB/Dyspnea General Chief Complaint: Upper Respiratory Infection Stated Complaint: sob x days, 90% on albuterol neb Time Seen by Provider: 04/08/22 02:05 History of Present Illness HPI Narrative: Patient states that his inhaler wasn't working; he has several days of URI symptoms and productive cough. Wheezing and short of breath at home, no chest pain or lower extremity swelling, no fevers/chills Related Data Home Medications Medication Instructions Recorded Confirmed fluticasone propionate 50 2 spray intranasal DAILY 01/23/21 02/26/22 mcg/actuation nasal spray,suspension (Flonase Allergy Relief) Allergies Allergy/AdvReac Type Severity Reaction Status Date / Time No Known Allergies Allergy Verified 01/20/22 09:24 Review of Systems Review of Systems: CONST: No fever. HEENT: No sore throat C/V: No chest pain RESP: cough GI: No nausea/vomiting : No dysuria. M/S: No joint pain. SKIN: No rash. NEURO: [No headache or focal numbness or weakness] PSYCH: [No depression] [facility] Past Medical History Medical History Alcoholism Anxiety Cataracts, bilateral COPD (chronic obstructive pulmonary disease) Dupuytren's contracture B/L. Right s/p release Elevated liver enzymes Elevated PSA Essential tremor History of rectal polyps Hyperglycemia Hypertension Hypothyroid Wears glasses Surgical History Surgical History No history of previous surgery Family History Family History Mother Alzheimer disease Congestive heart failure Father COPD (chronic obstructive pulmonary disease) Smoking Sibling Breast cancer Social History Social History Social History: Patient lives at home alone with his dog who is elderly/blind. He does not wish to designate a surrogate MDM as he has no living family in the area. He wishes to be a Full code. His PCP is Dr. Mckinley Smoking packs per day: 1.5 Smoking cigarettes per day: 30.0 Years smoked: 40 Smoking pack-years: 60.00 Smoking status: Former smoker Tobacco type: cigarettes Second hand tobacco smoke exposure: No Additional smoking assessment comments: Smoked 2ppd for roughly 30 years Alcohol intake: current Drinks per week: 5 Alcohol use details: Last drink 2 days prior to this admission Substance use: never Substance use type: does not use Other substance usage details: timi luna Gender identity (if verbalized by the patient): Male Spiritual care concerns: No Exam Narrative: EXAMINATION OF ORGAN SYSTEMS/BODY AREAS: Constitutional: Vital signs per nursing GENERAL: Tachypneic HEAD: Normal with no signs of head trauma. EYES: EOMI, conjunctiva normal ENT: Hearing grossly intact LUNGS: Coarse lung sounds and diffuse wheezing all lung [place] HEART: [Regular rate and rhythm] ABD: [Soft], [nontender to palpation] EXT: Normal range of motion SKIN: [No rashes or lesions.] NEURO: [Alert and oriented x 3. No gross focal sensory or strength deficits.] PSYCH: Normal affect Course Vital Signs Vital signs: Vital Signs Temperature 97.8 F 04/08/22 02:04 Pulse Rate 74 04/08/22 02:04 Respiratory Rate 20 04/08/22 02:04 Blood Pressure 133/79 04/08/22 02:04 Pulse Oximetry 95 04/08/22 02:04 Oxygen Delivery Room Air 04/08/22 02:04 Temperature 97.8 F 04/08/22 02:04 Pulse Rate 73 04/08/22 02:15 Respiratory Rate 99 H 04/08/22 02:15 Blood Pressure 133/79 04/08/22 02:04 Pulse Oximetry 99 04/08/22 02:15 Oxygen Delivery BiPAP 04/08/22 02:15 MDM - SOB/Dyspnea MDM Narrative Medical decision making narrative: ED COURSE AND MEDICAL DECISION MAKIN-year-old with acute dyspnea and wheezing likely due to acute COPD exacerbation based on history and exam. Patient is hemodynamically sta
[2022-04-08] MEDS: DOXYCYCLINE HYCLATE 100 MG TABLET PO (04:12)
== END 2022-04-08 04:51 | disposition home or self-care (01) ==
PROVIDERS: Emergency Provider Emergency Medicine; PCP Internal Medicine
DX: J20.9 Acute bronchitis, unspecified (principal); J06.9 Acute upper respiratory infection, unspecified; Z20.822 Contact with and (suspected) exposure to COVID-19; J44.9 Chronic obstructive pulmonary disease, unspecified; I10 Essential (primary) hypertension; E03.9 Hypothyroidism, unspecified; M72.0 Palmar fascial fibromatosis [Dupuytren]; F41.9 Anxiety disorder, unspecified; Z87.19 Personal history of other diseases of the digestive system; Z87.891 Personal history of nicotine dependence; I49.3 Ventricular premature depolarization; R94.31 Abnormal electrocardiogram [ECG] [EKG]
CPT/HCPCS: 36415; 71045; 80048; 85025; 93005; 94002; 94640; 96365; 96366; 96375; 99284; A9270; J2930; J3475; U0003; U0005

== ENCOUNTER 2022-04-28 23:47 | Emergency (ER) | payer MEDICARE, SELFPAY ==
--- NOTE | ~2022-04-28 | XR_ITS ---
EXAMINATION: XR chest 1V portable DATE: 04/29/2022 00:45 INDICATION: Dyspnea. TECHNIQUE: A single frontal view of the chest was obtained. COMPARISON: Chest single view 04/08/2022, chest CT 07/19/2019 FINDINGS: A calcified left lung nodule is consistent with old granulomatous disease. No pleural effus ion or pneumothorax. The heart size is normal. IMPRESSION: 1. No acute cardiopulmonary disease. Reviewed, dictated and finalized at location A. [employer]
[2022-04-29] VITALS: BP 145/65; PULSE 88; RESP 30; TEMP 36.8; O2SAT 98
--- NOTE | 2022-04-29 00:22 | ECG_ITS ---
Measurements Intervals [place] Rate: 68 P: 55 [place]: 192 QRS: 17 QRSD: 104 T: 44 QT: 440 QTc: 470 Interpretive Statements SINUS RHYTHM VENTRICULAR PREMATURE COMPLEX CANNOT RULE OUT SEPTAL INFARCT, AGE INDETERMINATE BASELINE ARTIFACT- I, II, III, V4-V6 ABNORMAL ECG COMPARED TO ECG 04/08/2022 02:03:27 NO SIGNIFICANT CHANGES Electronically Signed On 04-29-2022 6:17:26 [employer] by George Molina D.O.
[2022-04-29 01:01] LABS: Basophils Absolute Auto 0.1 K/mm3 (0.0-0.1); Basophils Percent Auto 1.5 % (0.2-1.2); Eosinophils Percent Auto 17.4 % (0-4.4); Hematocrit 41.9 % (42.0-52.0); Hemoglobin 14.4 g/dL (14.0-18.0); Immature Granulocyte Absolute 0.01 K/mm3 (0.00-0.031); Immature Granulocyte Percent A 0.2 % (0-0.5); Lymphocytes Absolute Auto 1.71 K/mm3 (0.9-3.2); Lymphocytes Percent Auto 31.3 % (18.3-44.2); Mean Corpuscular HGB Conc 34.4 g/dl (32-36); Mean Corpuscular Hemoglobin 34.2 pg (26-34); Mean Corpuscular Volume 99.5 fl (80-100); Mean Platelet Volume 9.7 fl (7.4-10.4); Monocytes Absolute Auto 0.8 K/mm3 (0.1-0.6); Monocytes Percent Auto 14.1 % (2.6-8.5); Neutrophils Absolute Auto 1.9 K/mm3 (1.3-6.7); Neutrophils Percent Auto 35.5 % (45.5-73.1); Platelet Count Result 169 k/mm3 (150-375); Red Blood Count 4.21 M/mm3 (4.6-6.20); Red Cell Distribution Width 12.8 % (11.5-14.5); White Blood Count 5.5 K/mm3 (4.5-10.0)
[2022-04-29] MEDS: predniSONE 20 MG TABLET 40 MG PO (01:04)
[2022-04-29] MEDS: DOXYCYCLINE HYCLATE 100 MG TABLET PO (01:05)
[2022-04-29] MEDS: ALBUTEROL SULFATE NEB 2.5 MG/3 ML INH 15 MG INHALATION (01:09)
[2022-04-29] MEDS: IPRATROPIUM BR 0.02% INH SOLN 0.5 MG/2.5 ML VIAL 1 MG INHALATION (01:09)
[2022-04-29 01:14] VITALS: O2SAT 99
[2022-04-29 01:15] VITALS: PULSE 58; RESP 16
[2022-04-29 01:37] LABS: Influenza A QL RT-PCR Negative (Negative); Influenza B QL RT-PCR Negative (Negative); RSV RNA, RT-PCR Negative (Negative); SARS-CoV-2 RNA PCR Negative
--- NOTE | 2022-04-29 02:03 | ED.SOB ---
HPI - SOB/Dyspnea General Chief Complaint: Shortness of Breath/Dyspnea Stated Complaint: SOB Time Seen by Provider: 04/28/22 23:55 History of Present Illness HPI Narrative: 76-year-old male with history of COPD presenting with shortness of breath and productive has been using breathing treatments at home without much improvement. Cough for the last few days. No fevers or chills. No chest pain Related Data Home Medications Medication Instructions Recorded Confirmed fluticasone propionate 50 2 spray intranasal DAILY 01/23/21 02/26/22 mcg/actuation nasal spray,suspension (Flonase Allergy Relief) Allergies Allergy/AdvReac Type Severity Reaction Status Date / Time No Known Allergies Allergy Verified 01/20/22 09:24 Review of Systems Review of Systems: CONST: No fever. HEENT: No sore throat C/V: No chest pain RESP: Cough and shortness of breath GI: No nausea or vomiting : No dysuria. M/S: No joint pain. SKIN: No rash. NEURO: [No headache or focal numbness or weakness] PSYCH: [No depression] [facility] Past Medical History Medical History Alcoholism Anxiety Cataracts, bilateral COPD (chronic obstructive pulmonary disease) Dupuytren's contracture B/L. Right s/p release Elevated liver enzymes Elevated PSA Essential tremor History of rectal polyps Hyperglycemia Hypertension Hypothyroid Wears glasses Surgical History Surgical History No history of previous surgery Family History Family History Mother Alzheimer disease Congestive heart failure Father COPD (chronic obstructive pulmonary disease) Smoking Sibling Breast cancer Social History Social History Social History: Patient lives at home alone with his dog who is elderly/blind. He does not wish to designate a surrogate MDM as he has no living family in the area. He wishes to be a Full code. His PCP is Dr. Mckinley Smoking packs per day: 1.5 Smoking cigarettes per day: 30.0 Years smoked: 40 Smoking pack-years: 60.00 Smoking status: Former smoker Tobacco type: cigarettes Second hand tobacco smoke exposure: No Additional smoking assessment comments: Smoked 2ppd for roughly 30 years Alcohol intake: current Drinks per week: 5 Alcohol use details: Last drink 2 days prior to this admission Substance use: never Substance use type: does not use Other substance usage details: timi luna Gender identity (if verbalized by the patient): Male Spiritual care concerns: No Exam Narrative: EXAMINATION OF ORGAN SYSTEMS/BODY AREAS: Constitutional: Vital signs per nursing GENERAL:[No acute distress, non-toxic appearing.] HEAD: Normal with no signs of head trauma. EYES: EOMI, conjunctiva normal ENT: Hearing grossly intact LUNGS: Wheezing and diminished lung sounds HEART: [Regular rate and rhythm] ABD: [Soft], nontender EXT: Normal range of motion SKIN: [No rashes or lesions.] NEURO: [Alert and oriented x 3. No gross focal sensory or strength deficits.] PSYCH: Normal affect Course Vital Signs Vital signs: Vital Signs Temperature 98.3 F 04/29/22 00:00 Pulse Rate 88 04/29/22 00:00 Respiratory Rate 30 H 04/29/22 00:00 Blood Pressure 145/65 H 04/29/22 00:00 Pulse Oximetry 98 04/29/22 00:00 Oxygen Delivery Room Air 04/29/22 00:00 Temperature 98.3 F 04/29/22 00:00 Pulse Rate 58 L 04/29/22 01:15 Respiratory Rate 16 04/29/22 01:15 Blood Pressure 145/65 H 04/29/22 00:00 Pulse Oximetry 99 04/29/22 01:14 Oxygen Delivery Room Air 04/29/22 01:14 MDM - SOB/Dyspnea MDM Narrative Medical decision making narrative: ED COURSE AND MEDICAL DECISION MAKIN-year-old male with acute dyspnea and wheezing likely due to acute COPD exacerbation based on history and exam. Nam hensley
[2022-04-29 02:18] VITALS: PULSE 66; RESP 18
== END 2022-04-29 02:30 | disposition home or self-care (01) ==
PROVIDERS: Emergency Provider Emergency Medicine; PCP Internal Medicine
DX: J44.1 Chronic obstructive pulmonary disease with (acute) exacerbation (principal); I10 Essential (primary) hypertension; E03.9 Hypothyroidism, unspecified; M72.0 Palmar fascial fibromatosis [Dupuytren]; Z87.19 Personal history of other diseases of the digestive system; Z87.891 Personal history of nicotine dependence; I49.3 Ventricular premature depolarization; R94.31 Abnormal electrocardiogram [ECG] [EKG]
CPT/HCPCS: 36415; 71045; 85025; 87637; 93005; 94640; 99284; A9270; J7512